=== PATIENT | male | born 1950 | race Caucasian/White ===

== ENCOUNTER 2018-10-07 06:51 | Inpatient (IN) | payer OTHER ==
[~2018-10-07] VITALS: Ht 198.1 cm; Wt 122.9 kg
--- NOTE | ~2018-10-07 | CON ---
[address] [address] CONSULTATION Name: BARBARA LANDAVERDE MING Room: [address] IN .R.#: [id number] Admission: 10/07/18 Attend Phys: Lindy Bonilla Discharge: Date of : 52 Report #: [id number] THIS REPORT FOR: //name// CC: Felix Thomas DATE OF SERVICE: 10/07/2018 PRIMARY CARE PHYSICIAN: Felix Diaz MD CHIEF COMPLAINT: Shortness of breath. HISTORY OF PRESENT ILLNESS: The patient is a 68-year-old man presently acutely hypoxic with some chest pressure in the Emergency Room. Chest x-ray showed some mild cardiomegaly and mild bilateral infiltrates. He was treated with oxygen, steroids and diuretics. This morning, he is more alert and less dyspneic. He denies chest pain or pressure. He denies orthopnea or PND, but has been short of breath. He weighs himself fairly regularly and has not really had any changes according to the patient. He is compliant with his medications, which include Plavix. He has a history of cardiovascular and peripheral vascular disease. His presenting ECG is unremarkable. His cardiac troponin level is mildly abnormal, at 0.86. PAST MEDICAL HISTORY: He had an anterior SC in 2002; 2018 showed no reversible defects on nuclear stress test, EF 52%. There is a history of prior peripheral vascular disease, atherectomy of the right leg. He has bilateral 50-69% stenoses on carotid Doppler. He has hyperlipidemia, hypertension, morbid obesity. PAST SURGICAL HISTORY: Atherectomy, PCI, mwfog-iaj-orji amputation in the left leg. HOME MEDICATIONS: Aspirin, Plavix, atorvastatin 80 mg daily, clonidine 0.1 mg b.i.d., Plavix 75 mg daily, Cymbalta, Jardiance, Triglide, iron, gabapentin, hydrocodone, insulin, lisinopril 10 mg daily, Toprol-XL 50 mg daily, ramipril 5 mg p.o. daily. 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 FAMILY HISTORY: [place] [address] CONSULTATION Name: BARBARA LANDAVERDE Room: [address]#: [id number] Admission: 10/07/18 Attend Phys: Lindy Bonilla Discharge: Date of : 52 Report #: [id number] REVIEW OF SYSTEMS: CENTRAL NERVOUS SYSTEM: No seizures. Positive weakness. GENERAL: No weight loss. RESPIRATORY: Positive shortness of breath. CARDIOVASCULAR: Positive chest pressure. No chest pain, no orthopnea, no PND, no edema. ENDOCRINE: Positive diabetes. GASTROINTESTINAL: No nausea, vomiting, or hematemesis. GENITOURINARY: No dysuria or hematuria. HEMATOLOGIC: No anemia or bleeding disorders. RENAL: Positive for renal insufficiency. PSYCHIATRIC: Positive depression. Positive anxiety. MUSCULOSKELETAL: No arthritis. SKIN: No skin disease. EARS, NOSE, THROAT AND MOUTH: Positive decreased hearing. Positive dentures. PHYSICAL EXAMINATION: VITAL SIGNS: Blood pressure is 141/71, pulse is 96, heart rate is 18, O2 flow is 2 liters nasal cannula with a sat of 92%. GENERAL: Obese, elderly male who is alert, in no apparent distress. HEENT: Eyes are intact. No facial asymmetry. EXTREMITIES: He has ailna-enu-uwxm amputation. CARDIOVASCULAR: Regular. There are no murmurs, gallops or thrills. LUNGS: Diminished breath sounds, faint basilar rales. ABDOMEN: Soft, nontender. EXTREMITIES: No peripheral edema. SKIN: Warm and dry. NEUROLOGIC: No focal deficits. Electrocardiogram as noted above. LABORATORY DATA: As noted above. Chest x-ray shows cardiomegaly and mild infiltrates diffusely. CT scan of the chest shows no evidence of pulmonary embolus. IMPRESSION: 1. Wdjie-sh-fecrppq diastolic congestive heart failure. 2. Coronary artery disease. 3. Chronic obstructive pulmonary disease exacerbation. 4. Coronary artery disease. 5. Peripheral vascular disease. 6. Hypertension. 7. Chronic kidney disease. PLAN: At this point in time, he will be admitted for COPD [place] [address] CONSULTATION Name: BARBARA LANDAVERDE MING Room: [address] IN .R.#: [id number] Admission: 10/07/18 Attend Phys: Lindy Bonilla Discharge: Date of : 52 Report #: [id number] will treat him with diuretics and resume his antiplatelet therapy for his chronic coronary artery disease. He has mildly abnormal troponin level, but this is probably more related to CHF rather than an acute coronary syndrome as he presents more with these findings. By: 1210 0226Cuba Roberto MD, FACC /nt
[~2018-10-07 06:51] MED LIST: ACETAMINOPHEN325 M1 PO; ADULT LOW DOSE81 MG PO; ALEVE220 MG; ALTACE10 M1 PO; ALTACE10 MG PO; AMBIEN 5 MG TABL5 M1 PO; APIDRA SQ; ASPIRIN81 M2 PO; ATORVASTATIN CA40 MG PO; BENADRYL25 MG PO; BRAIN MIGHT-DH1 EACH PO; CENTRUM SILVER1 EAC2 PO; CLONIDINE0.1 PO; CRESTOR5 MG PO; CYMBALTA30 MG PO; CYMBALTA60 MG PO; DARVOCET-N 1001 EACH PO; DESONIDE CR. 1515 G1 TP; DULCOLAX5 MG PO; ENOXAPARIN40 MG/0.1 INJECTION; FEVERALL650 MG PO; FIBER 6 TABLE1000 MG PO; FISHOIL PO; FLAGYL500 MG PO; FLUOCINONI0.05 %/31 TOP; FOLIC ACID1 MG PO; GABAPENTIN300 MG PO; GLUCOPHAGE1000 MG PO; HUMULINU500 SUBQ; ILEVRO1.7 ML OP; IRON325 PO; JARDIANCE25 MG PO; L LYSINE; LEVEMIR SQ; LEVEMIR100 UNIT/1 SUBQ; LIPITOR40 MG PO; LISINOPRIL10 MG PO; MAG-AL PLUS XS30 ML PO; MAGNESIUM OXID200 MG PO; MELATONIN5 M1 PO; METANX; METFORMIN HCL500 MG PO; MILK OF MA2400 MG/10 PO; MINOCYCLINE HC100 M2; NEURONTIN 300300 M1 PO; NITROGLYCERIN0.4 MG SL; NIZORAL120 ML TP; NORCO 10-325 T1 EAC1 PO; NORCO 5-325 TA1 EAC1 PO; NORVASC 2.5 MG2.5 M1 PO; ONDANSETRON HCL4 M2 PO; OSTEO BI-FLEX1 EAC1 PO; OXYCODONE HCL15 MG PO; PHENERGAN 25 MG25 M1 PO; PIOGLITAZONE15 MG PO; PLAVIX 75 MG TA75 M1 PO; PLAVIX 75 MG TA75 MG PO; POLYTRIM OTIC; POTASSIUM; PRED FORTE 1% EY5 M1 OP; ROCEPHIN 11 GM/1001 IV; SYMLIN0.6 MG/ML; SYMLIN0.6 MG/ML SQ; TACLONEX OINTME60 GM TP; TOPROL XL50 MG PO; TOUJEO SOL300 UNIT/1 SQ; TRICOR145 MG PO; TRIGLIDE160 M1 PO; TRUJEO SUBQ; TYLENOL325 MG PO; VANCO 1.251.25 GM/25 IV; VICODIN 5-5001 EACH PO; VICTOZA0.6 MG/0.1 SUBQ; VIT A-BETA25000 UNIT PO; VITAMIN B-12500 MCG PO; VITAMIN B6 PO; VITAMIN D32000 UNI1 PO; VITAMIN E400 UNIT PO; XANAX 0.25 MG0.25 MG PO; ZOCOR 20 MG TAB20 M1 PO
[2018-10-07 07:01] VITALS: BP 179/98
[2018-10-07 07:19] LABS: ABSOLUTE BASOPHILS 0.1 thou/uL (0.0-0.2); ABSOLUTE EOSINOPHILS 0.3 thou/uL (0.0-0.7); ABSOLUTE LYMPHOCYTES 1.5 thou/uL (0.8-5.3); ABSOLUTE MONOCYTES 0.4 thou/uL (0.0-1.2); ABSOLUTE NEUTROPHILS 7.5 thou/uL (1.6-8.1); BASOPHILS 0.9 %; EOSINOPHILS 3.1 %; HEMATOCRIT 39.8 % (42.0-52.0); HEMOGLOBIN 12.8 gm/dL (14.0-18.0); LYMPHOCYTES 15.1 %; MCH 27.2 pg (26.0-34.0); MCHC 32.2 g/dL (28.0-37.0); MCV 84.5 fL (80.0-100.0); MONOCYTES 4.5 %; MPV 7.7 fl. (7.2-11.1); NUCLEATED RBCS 0 /100WBC; PLATELET COUNT* 479 thou/uL (150-400); POLYS 76.4 %; RBC 4.72 mil/uL (4.50-6.00); RDW-CV 16.8 % (10.5-14.5); WBC 9.8 thou/uL (4.0-11.0)
[2018-10-07 07:34] LABS: INR 1.1; PROTIME 11.5 Seconds (9.20-11.50)
[2018-10-07 07:44] LABS: CALCIUM 10.3 mg/dL (8.5-10.1); POTASSIUM 3.8 mmol/L (3.5-5.1)
[2018-10-07 07:53] LABS: ALBUMIN 3.9 g/dL (3.4-5.0); TOTAL BILIRUBIN 0.5 mg/dL (<0.1-1.0); TOTAL PROTEIN 8.8 g/dL (6.4-8.2); TROPONIN-I LEVEL 0.08 ng/mL (<0.06)
[2018-10-07 08:05] LABS: BE 0.9 mmol/L (-2 to +3); PO2 69.1 mmHg (75.0-100.0); pH 7.398 (7.340-7.450)
[2018-10-07 17:30] VITALS: BP 158/74
[2018-10-07 18:30] VITALS: BP 126/63
--- NOTE | 2018-10-07 18:30 | NUR ---
REC'D REPORT FROM CRUISE CONSULTANT APPROX 1725, PATIENT ARRIVED TO UNIT APPROX 1803 VIA HOSPITAL BED AND ER STAFF. A&OX4, ABLE TO COMMUNICATE NEEDS TO STAFF. 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 O2 SAT 96% RA. ADMISSION EDUCATION AND ADMISSION HISTORY COMPLETE. ORIENTED PATIENT TO ROOM, FALL PROTOCOL AND CALL LIGHT.
[2018-10-07 20:30] VITALS: BP 122/59
[2018-10-08] VITALS: BP 137/63
--- NOTE | 2018-10-08 01:54 | NUR ---
RECEIVED REPORT AND ASSUMED CARE OF PATIENT AT APPROX 1930. ADMISSION ASSESSMENT COMPLETED CHARTED, VSS ON ROOM AIR. PATIENT DENIES PAIN AND DISCOMFORT. PATIENT EDUCATED ON PLAN OF CARE AND VERBALIZES UNDERSTANDING. GOAL IS TO PAIN MANAGEMENT, MAINTAIN O2 SAT >92%, AND REST COMFORTABLY THIS SHIFT. DARK AND QUIET ENVIRONMENT PROVIDED FOR REST AND RELAXATION. CALL LIGHT WITHIN REACH.
[2018-10-08 04:00] VITALS: BP 126/56
[2018-10-08 07:10] VITALS: BP 128/68
--- NOTE | 2018-10-08 07:30 | NUR ---
PATIENT PROGRESSING TOWARDS GOALS: PATIENT CONTINUES TO DENY PAIN AND DISCOMFORT. O2 SAT >92% ON ROOM AIR. PATIENT RESTED WELL THROUGHOUT SHIFT. PT HOPING TO BE DISCHARGED HOME TODAY. STATES HE "FEELS MUCH BETTER." REPORT GIVEN TO ONCOMING RN. CALL LIGHT WITHIN REACH
[2018-10-08 11:30] VITALS: BP 115/54
--- NOTE | 2018-10-08 13:00 | NUR ---
INITAL ASSESSMENT COMPLETED CHARTED. PT TRACING SR ON MONITOR. NEW ORDERS RECIEVED FOR HEPARIN GTT AND WILL GO FOR HEART CATH TOMORROW. PT EDUCATED ON UPCOMING PROCEDURE, ACKNOWLEDGES UNDERSTANDING. PT LISBET BOURNE CP, N/V/D. HOURLY ROUNDING AND FALL PRECAUTIONS IN PLACE FOR PT SAFETY. CLWR.
[2018-10-08 16:00] VITALS: BP 131/54
[2018-10-08 19:30] VITALS: BP 139/60
[2018-10-09] VITALS (7 sets, daily range): BP systolic 115–159; BP diastolic 57–84
--- NOTE | 2018-10-09 01:13 | NUR ---
RECEIVED REPORT AND ASSUMED CARE AT 1900. VSS. CARDIAC MONITORING IN PLACE. PT DENIES COMPLAINTS OF PAIN. ASSESSMENT COMPLETED CHARTED. DISCUSSED PLAN OF CARE WITH PT. NPO AFTER MIDNIGHT, CATH TOMORROW. VERBALIZD UNDERSTANDING. PT UP WITH ASSIST, ON RA. BED LOCKED IN LOWEST POSITION, CALL LIGHT WITHIN REACH
[2018-10-09 04:51] LABS: CALCIUM 9.8 mg/dL (8.5-10.1); POTASSIUM 4.6 mmol/L (3.5-5.1)
--- NOTE | 2018-10-09 09:21 | NUR ---
Nutrition: consult received for "wound". Only wounds listed were "abrasion, scratch, scab." No pressure wound. Defer full assessemnet.
--- NOTE | 2018-10-09 13:06 | NUR ---
Pt is A&O. Resides at home with his . Pt states that his has metastic breast CA, he assists her as needed. Pt's dtr lives next door and is also available assist Pt/. Pt wears a left leg prosthetic. Has a walker that he can use as needed and a shower bench. Hx of HH post amputation. Hx of acute rehab and outpt therapy. Goal is home at ut. No needs anticipated.
--- NOTE | 2018-10-09 16:50 | EKG ---
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 Specialist: ER : 1950 Requested By: Hayley Suazo Order Number: [id number] Mirlela MD: Emiliano Young Measurements Intervals [place] Rate: 108 P: 0 CA: 45 QRS: 13 QRSD: 105 T: 57 QT: 320 QTc: 429 Interpretive Statements Sinus tachycardia Probable inferior infarct, acute Artifact in lead(s) V1 and baseline wander in lead(s) V5 Compared to ECG 11/30/2016 13:16:03 No significant changes Electronically Signed On 10-09-2018 16:49:58 CDT by Emiliano Young [email or web address] <ELECTRONICALLY SIGNED> By: Emiliano Young MD, [facility] 10/09/18 [phone] Emiliano Young MD, [facility] /EPI
--- NOTE | 2018-10-09 16:50 | EKG ---
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 : 1950 Requested By: Hayley Suazo Order Number: [id number] MD: Emiliano Young Measurements Intervals [place] Rate: 107 P: 69 CO: 210 QRS: 4 QRSD: 107 T: 52 QT: 333 QTc: 445 Interpretive Statements Sinus tachycardia Borderline prolonged CO interval Consider left atrial enlargement Inferior infarct, old Baseline wander in lead(s) V5,V6 Compared to ECG 11/30/2016 13:16:03 Myocardial infarct finding still present Electronically Signed On 10-09-2018 16:50:26 CDT by Emiliano Young [email or web address] <ELECTRONICALLY SIGNED> By: Emiliano Young MD, [facility] 10/09/18 1650 [phone] Emiliano Young MD, [facility] /EPI
--- NOTE | 2018-10-09 16:59 | EKG ---
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: 1884 : 1950 Requested By: Cuba Roberto Order Number: [id number] Reading MD: Emiliano Young Measurements Intervals [place] Rate: 99 P: 86 [place]: 195 QRS: -23 QRSD: 117 T: 92 QT: 384 QTc: 493 Interpretive Statements Sinus tachycardia Ventricular premature complex Probable left atrial enlargement LVH with IVCD and secondary repol abnrm Probable inferior infarct, age uncertain Compared to ECG 11/30/2016 13:16:03 Ventricular premature complex(es) now present Intraventricular conduction delay now present Left ventricular hypertrophy now present Early repolarization now present Myocardial infarct finding still present Electronically Signed On 10-09-2018 16:58:54 CDT by Emiliano Young [email or web address] <ELECTRONICALLY SIGNED> By: Emiliano Young MD, [facility] 10/09/18 1658 1043 1043 Emiliano Young MD, [facility] /EPI
[2018-10-10 03:25] LABS: CALCIUM 9.7 mg/dL (8.5-10.1); CREATININE 1.8 mg/dL (0.6-1.3); POTASSIUM 4.7 mmol/L (3.5-5.1)
[2018-10-10 04:00] VITALS: BP 140/66
--- NOTE | 2018-10-10 05:44 | NUR ---
PATIENT PROGRESSING TOWARDS GOALS: PATIENT DENIES PAIN AND DISCOMFORT. VSS ON ROOM AIR. PATIENT ANTICIPATING CARDIAC CATH TODAY. PT UNDERSTANDS PLAN OF CARE. BLOOD SUGAR 440. DISCUSSED WITH DR. GE. ADVANCED SLIDING SCALE LISPRO TO MODERATE DOSE. PATIENT REQUESTED BOX LUNCH. OFFERED SUGAR FREE ALTERNATIVES DUE TO ELEVATED BLOOD SUGAR. HEPARIN GTT INFUSING PER ORDERS. CALL LIGHT WITHIN REACH
[2018-10-10 07:15] VITALS: BP 129/60
[2018-10-10 11:37] VITALS: BP 133/56
--- NOTE | 2018-10-10 14:19 | 2DMMODE ---
[place] [address] 2 D/M-MODE ECHOCARDIOGRAM Name: BARBARA LANDAVERDE [facility]#: [id number] Admission: 10/07/18 Attend Phys: Charli Thomas Discharge: Date of : 52 Date of Service: 10/10/18 1419 Report #: [id number] THIS REPORT FOR: //name// APPROVED REPORT Study performed: 10/10/2018 10:29:54 EXAM: Comprehensive 2D, Doppler, and color-flow Echocardiogram Patient Location: In-Patient Room #: 210 Status: routine BSA: 2.53 HR: 90 bpm BP: 129/60 mmHg Rhythm: NSR Other Information Study Quality: Good Indications Acute MO COPD 2D Dimensions IVSd: 14.46 (7-11mm) LVOT Diam: 24.31 (18-24mm) LVDd: 55.52 mm PWd: 14.09 (7-11mm) Ascending Ao: 38.32 (22-36mm) LVDs: 26.15 (25-40mm) Aortic Root: 34.97 mm Volumes Left Atrial Volume (Systole) LA ESV Index: 30.50 mL/m2 Aortic Valve AoV Peak Stuart.: 1.27 m/s AO Peak Gr.: 6.40 mmHg LVOT Max P.28 mmHg AO Mean Gr.: 4.08 mmHg LVOT Mean P.86 mmHg LVOT Max V: 1.15 m/s AO V2 VTI: 25.56 cm LVOT Mean V: 0.79 m/s ENRICO (VTI): 4.56 cm2 LVOT V1 VTI: 25.10 cm Mitral Valve E/A Ratio: 1.14 MV Decel. Time: 155.53 [place] [address] 2 D/M-MODE ECHOCARDIOGRAM Name: BARBARA LANDAVERDE Room: [address] IN .R.#: [id number] Admission: 10/07/18 Attend Phys: Charli Thomas Discharge: Date of : 52 Date of Service: 10/10/18 1419 Report #: [id number] MV E Max Stuart.: 1.08 m/s MV PHT: 45.10 ms MVA (PHT): 4.88 cm2 TDI E/Lateral E': 8.31 E/Medial E': 10.80 Medial E' Stuart.: 0.10 m/s Lateral E' Stuart.: 0.13 m/s Pulmonary Valve PV Peak Stuart.: 1.15 m/s PV Peak Gr.: 5.28 mmHg Left Ventricle The left ventricle is normal size. Regional wall motion abnormalities are noted with distal septal and anteroapical hypo-akinesis. There is normal left ventricular wall thickness. Left ventricular systolic function is mildly decreased. LVEF is 50%. The left ventricular diastolic function is normal. Right Ventricle The right ventricle is normal size. The right ventricular systolic function is normal. Atria The left atrium size is normal. The right atrium size is normal. Aortic Valve Moderate aortic valve sclerosis. No aortic regurgitation is present. There is no aortic valvular stenosis. Mitral Valve The mitral valve is mildly thickened. Trace mitral regurgitation. No evidence of mitral valve stenosis. Tricuspid Valve The tricuspid valve is normal in structure. Trace tricuspid regurgitation. Unable to assess PA pressure. Pulmonic Valve The pulmonary valve is normal in structure. There is no pulmonic valvular regurgitation. Great Vessels The aortic root is normal in size. IVC is normal in size and collapses >50% [place] [address] 2 D/M-MODE ECHOCARDIOGRAM Name: BARBARA LANDAVERDE Room: [address] IN [facility]#: [id number] Admission: 10/07/18 Attend Phys: Charli Thomas Discharge: Date of : 52 Date of Service: 10/10/18 1419 Report #: [id number] Pericardium There is no pericardial effusion. <Conclusion> The left ventricle is normal size. There is normal left ventricular wall thickness. Left ventricular systolic function is mildly decreased. LVEF is 50%. The left ventricular diastolic function is normal. The right ventricle is normal size. The left atrium size is normal. Moderate aortic valve sclerosis. No aortic regurgitation is present. There is no aortic valvular stenosis. The mitral valve is mildly thickened. Trace mitral regurgitation. The tricuspid valve is normal in structure. IVC is normal in size and collapses >50% with inspiration. There is no pericardial effusion. Regional wall motion abnormalities are noted with distal septal and anteroapical hypo-akinesis. <ELECTRONICALLY SIGNED> By: Emiliano Young MD, FACC 10/10/18 1419 1419 1419 Emiliano Young MD, FACC /INF
[2018-10-10 15:40] VITALS: BP 136/57
--- NOTE | 2018-10-10 18:49 | NUR ---
ASSESSMENT COMPLETED CHARTED. VSS. TRACING SR WITH 1ST DEGREE AND PVC'S ON MONITOR. PT DENIES ANY NEW NEEDS OR CONCERNS AT THIS TIME. HOURLY ROUNDING AND FALL PRECAUTIONS IN PLACE FOR PT SAFETY. MEDS GIVEN PER EMAR. CLWR.
[2018-10-10 19:45] VITALS: BP 149/77
[2018-10-11] VITALS (18 sets, daily range): BP systolic 124–183; BP diastolic 58–87
[2018-10-11 01:34] LABS: CALCIUM 9.1 mg/dL (8.5-10.1); CREATININE 1.7 mg/dL (0.6-1.3)
--- NOTE | 2018-10-11 07:04 | NUR ---
RECEIVED REPORT AND ASSUMED CARE AT 1900. VSS. CARDIAC MONITORING IN PLACE. PT DENIES COMPLAINTS OF PAIN. ASSESSMENT COMPLETED CHARTED. PT UP WITH ASSIST, WITH WALKER WITH PROSTHETIC. ON RA. BED LOCKED IN LOWEST POSITION, CALL LIGHT WITHIN REACH. HOURLY ROUNDING COMPLETED AND ALL NEEDS MET.
--- NOTE | 2018-10-11 13:02 | NUR ---
ASSUMED CARE OF PATIENT THIS AM AT 0730. PATIENT IS ALERT AND ORIENTED X 4. HE DENIES CHEST PAIN. HEPARIN GTT WAS INFUSING FROM RAIMANN MACHINE OPERATOR ALONG WITH MAINTAINCE IVF. DR ANTONY IN EARLY TO ROUND AND ORDERS FOR CARDIAC CATH PLACED. PATIENT TAKEN TO POPCORN ATTENDANT CORNELIO BED. PATIENT RETURNED TO THE ROOM AT 1015. POST CATH VS TAKEN. TELE SHOWS CONTINUED SR. PATIENT CONTINUES TO DENY CHEST PAIN. DIET ORDERED. PATIENT ASSISTED WITH ADLS. WILL CONTINUE TO MONITOR. CATH SITE INTACT. NO BLEEDING NOTED.
--- NOTE | 2018-10-11 16:19 | CARD ---
[address] [address] CARDIAC CATH REPORT Name: BARBARA LANDAVERDE MING Room: [address] IN [facility].#: [id number] Admission: 10/07/18 Attend Phys: Lindy Bonilla Discharge: Date of : 52 Report #: [id number] THIS REPORT FOR: //name// APPROVED REPORT Study performed: 10/11/2018 08:35:18 Patient Details Patient Status: In-Patient Room #: The patient is a 68 year-old male Event Personnel Felix Ling Photographic Plate Maker, Tayla Rodriguez RN RN, Stephan Etienne (Nedra) Eloise Brewer Brittany RN Monitor Procedures Performed Art Access - R radial artery Indication Non-STEMI Risk Factors Peripheral Vascular Disease, Diabetes Previous Procedures/Diagnoses Previous PCI Admission/Lab Medications/Medications given during procedure Glycoprotein IllbIlla Inhibitors, Heparin Unfract. Procedure Narrative The patient was brought electively to the Cardiac Catheterization Laboratory and was prepped and draped in a sterile manner. The right wrist was infiltrated with 1% Lidocaine subcutaneous anesthesia. A Slender Glidesheath sheath was inserted into the right radial artery. Coronary angiography was performed using coronary diagnostic catheters. The right coronary system was accessed and visualized with a JR4 6fr catheter. The left coronary system was accessed and visualized with a JL4 6fr catheter. The left ventricle was accessed and visualized with a JR4 6fr catheter. Left ventricular/Aortic Valve gradient assessed via catheter pullback. Closure device was deployed with a 6 Fr vascband. The patient tolerated the procedure well and there were no complications associated with the procedure. [place] [address] CARDIAC CATH REPORT Name: AKHILBARBARA MING Room: [address] IN [facility]#: [id number] Admission: 10/07/18 Attend Phys: Lindy Bonilla Discharge: Date of : 52 Report #: [id number] Intraoperative Conscious Sedation Sedation start time: 915 Case end Time: 950 Versed 2 mg Fluoro Time: 5.5 minutes Dose: DAP 01983 cGycm2 1475 mGy Contrast Type and Amount: Visipaque 200 ml Coronary Angiography The patient's coronary anatomy is right dominant. Diagnostic Cath Left Main 30% distal stenosis LAD proximal stent with 30% restenosis. 90% mid stenosis and 80% apical stenosis Diagonal 1 small vessel with 70% mid stenosis Circumflex 0% stenosis Right Coronary 30% mid stenosis R PDA 50% ostial and 90% distal stenosis Ramus Noted to bifurcate. One distal limb had a 80% mid stenosis and the other branch appeared to be chronically occluded. Left Ventriculography Left Ventriculography was not performed. Hemodynamics The aortic pressure is 123/59 mmHg with a mean of 82 mmHg. The left ventricular pressure is 115/10 mmHg with a mean of mmHg. The left ventricular end diastolic pressure is 12 mmHg. There was no gradient across the aortic valve upon pullback. Pullback from the left ventricle to the aorta revealed no gradient across the aortic valve. PCI Technique Lesion Anticoagulation was achieved with Heparin. bolus of iv aggrastat given Percutaneous coronary intervention was performed on the mid left anterior descending artery segment. The lesion stenosis prior to intervention was 90% with DARLYN 3 flow. A 6F XB LAD 3.5 Guide Catheter was used to engage the lm ostium. A IG: BMW 190cm Interventional Guidewire was used to cross the lesion. BALLOON DILATION A Balloon catheter Trek RX 2.5 X 8 was inserted and inflated up to 8.00atm for 18seconds. Repeat [place] [address] CARDIAC CATH REPORT Name: DAHLIAQASIMBARBARA Room: [address]#: [id number] Admission: 10/07/18 Attend Phys: Lindy Bonilla Discharge: Date of : 52 Report #: [id number] post-dilatation results: 70% stenosis. STENT DEPLOYMENT A drug-eluting stent Xience Anna 2.5X12mm was inserted and inflated up to 8.00atm for 16seconds. Repeat angiography revealed the following post-stent deployment results: 0% stenosis. Additional Inflation: 9.00atm for 11seconds. Additional Inflation: 16.00atm for 3seconds. Final angiography reveals 0 % stenosis with DARLYN 3 flow. Conclusion 1. No restenosis of stent in the proximal lad, but 90% stenosis in the mid lad 2. 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 Recommendations Cardiac Rehabilitation Referral Aggressive Medical Therapy Medications Administered Clopidogrel <ELECTRONICALLY SIGNED> By: Felix Ling MD, [facility] 10/11/18 1619 1619 1619Damargo iLng MD, [facility] /INF
[2018-10-12 04:00] VITALS: BP 147/68
[2018-10-12 04:48] LABS: HEMATOCRIT 32.7 % (42.0-52.0); HEMOGLOBIN 10.4 gm/dL (14.0-18.0); MCH 26.8 pg (26.0-34.0); MCHC 31.8 g/dL (28.0-37.0); MCV 84.1 fL (80.0-100.0); MPV 8.2 fl. (7.2-11.1); RBC 3.88 mil/uL (4.50-6.00); RDW-CV 16.4 % (10.5-14.5); WBC 9.3 thou/uL (4.0-11.0)
--- NOTE | 2018-10-12 05:01 | NUR ---
Patient progressing towards goals: patient denies pain and discomfort throughout shift. Right radial cath site dressing c/d/i without hematoma. Patient reports good sensation in hand without tingling/numbness. Patient voiding per urinal with excellent output. Possible discharge today. Call light within reach
[2018-10-12 05:31] LABS: CALCIUM 8.8 mg/dL (8.5-10.1); CREATININE 1.5 mg/dL (0.6-1.3); POTASSIUM 3.9 mmol/L (3.5-5.1)
[2018-10-12 05:38] LABS: TROPONIN-I LEVEL 4.36 ng/mL (<0.06)
[2018-10-12 07:58] VITALS: BP 121/66
[2018-10-12] MEDS ORDERED: KEFLEX500 M1 PO (10:22)
[2018-10-12] MEDS ORDERED: PREDNISONE 10 M10 MG PO (10:22)
--- NOTE | 2018-10-12 10:23 | NUR ---
ASSUMED CARE OF PT AROUND 0730 THIS AM. REFER TO ASSESSMENT. PT ANTICIPATES DC HOME TODAY. CARDIOLOGY OK WITH DC. AWAITING ORDER FROM HIMS AT THIS TIME. NO C/O PAIN. NO OTHER CONCERNS AT THIS TIME. CLWR. WCTM.
[2018-10-12] MEDS ORDERED: ALTACE10 MG PO (10:58)
[2018-10-12] MEDS ORDERED: NITROGLYCERIN0.4 MG SUBLING (10:59)
--- NOTE | 2018-10-12 11:36 | EKG ---
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 : 1950 Requested By: Felix Ling Order Number: [id number] Reading MD: Cuba Roberto Measurements Intervals [place] Rate: 66 P: 53 [place]: 198 QRS: -15 QRSD: 120 T: 96 QT: 409 QTc: 429 Interpretive Statements Sinus rhythm Nonspecific intraventricular conduction delay Inferior infarct, old Lateral leads are also involved Compared to ECG 10/08/2018 10:43:10 Sinus tachycardia no longer present Ventricular premature complex(es) no longer present Left ventricular hypertrophy no longer present Early repolarization no longer present Myocardial infarct finding still present Electronically Signed On 10-12-2018 11:36:28 CDT by Cuba Roberto [email or web address] <ELECTRONICALLY SIGNED> By: Cuba Roberto MD, [facility] 10/12/18 1136 5 5 Cuba Roberto MD, [facility] /EPI
--- NOTE | 2018-10-12 12:00 | NUR ---
DC INSTRUCTIONS GIVEN TO PT AT THIS TIME. VERBALIZES UNDERSTANDING. F/U CARDIOLOGY APPOINTMENT SCHEDULED FOR 10/17/18 AT 1330. IV DC'D INTACT. NO OTHER CONCERNS AT THIS TIME. CLWR. WCTM.
== END 2018-10-12 12:11 | disposition home or self-care (01) | DRG 246 ==
LOC: M.ERS 06:51 → M.2W 08:55 → M.TBA-ER 08:55 → M.2W 17:57
PROVIDERS: Family Medicine; Internal Medicine; Internal Medicine Cardiovascular Disease; Personal Emergency Response Attendant; Registered Nurse; ADMIT Internal Medicine
PROC: B211YZZ Fluoroscopy of Multiple Coronary Arteries using Other Contrast (ICD-10-PCS; principal; 2018-10-11)
PROC: 4A023N7 Measurement of Cardiac Sampling and Pressure, Left Heart, Percutaneous Approach (ICD-10-PCS; principal; 2018-10-11)
PROC: 027034Z Dilation of Coronary Artery, One Artery with Drug-eluting Intraluminal Device, Percutaneous Approach (ICD-10-PCS; principal; 2018-10-11)
DX: I21.4 Non-ST elevation (NSTEMI) myocardial infarction (principal); I50.33 Acute on chronic diastolic (congestive) heart failure; J96.00 Acute respiratory failure, unspecified whether with hypoxia or hypercapnia; I13.0 Hypertensive heart and chronic kidney disease with heart failure and stage 1 through stage 4 chronic kidney disease, or unspecified chronic kidney disease; N17.9 Acute kidney failure, unspecified; J44.1 Chronic obstructive pulmonary disease with (acute) exacerbation; N18.9 Chronic kidney disease, unspecified; E11.22 Type 2 diabetes mellitus with diabetic chronic kidney disease; E78.5 Hyperlipidemia, unspecified; F32.9 Major depressive disorder, single episode, unspecified; M19.90 Unspecified osteoarthritis, unspecified site; E11.40 Type 2 diabetes mellitus with diabetic neuropathy, unspecified; L40.9 Psoriasis, unspecified; E11.51 Type 2 diabetes mellitus with diabetic peripheral angiopathy without gangrene; E66.01 Morbid (severe) obesity due to excess calories; D64.9 Anemia, unspecified; I25.10 Atherosclerotic heart disease of native coronary artery without angina pectoris; I25.2 Old myocardial infarction; Z95.5 Presence of coronary angioplasty implant and graft; Z87.891 Personal history of nicotine dependence; Z86.73 Personal history of transient ischemic attack (TIA), and cerebral infarction without residual deficits; Z82.49 Family history of ischemic heart disease and other diseases of the circulatory system; Z98.42 Cataract extraction status, left eye; Z98.41 Cataract extraction status, right eye; Z79.899 Other long term (current) drug therapy; Z79.82 Long term (current) use of aspirin; Z88.0 Allergy status to penicillin; Z68.31 Body mass index [BMI] 31.0-31.9, adult; Z89.512 Acquired absence of left leg below knee; Z83.3 Family history of diabetes mellitus

== ENCOUNTER 2019-01-04 12:52 | Emergency (ER) | payer OTHER ==
[~2019-01-04] VITALS: Ht 198.1 cm; Wt 121.1 kg
[~2019-01-04 12:52] MED LIST changes: +KEFLEX500 M1 PO; +NITROGLYCERIN0.4 MG SUBLING; +PREDNISONE 10 M10 MG PO
[2019-01-04] MEDS ORDERED: METFORMIN HCL500 MG PO (13:08)
[2019-01-04 13:20] LABS: ABSOLUTE BASOPHILS 0.1 thou/uL (0.0-0.2); ABSOLUTE EOSINOPHILS 0.3 thou/uL (0.0-0.7); ABSOLUTE LYMPHOCYTES 0.8 thou/uL (0.8-5.3); ABSOLUTE MONOCYTES 0.5 thou/uL (0.0-1.2); ABSOLUTE NEUTROPHILS 7.6 thou/uL (1.6-8.1); BASOPHILS 0.7 %; EOSINOPHILS 2.9 %; HEMOGLOBIN 11.3 gm/dL (14.0-18.0); LYMPHOCYTES 8.8 %; MCH 28.4 pg (26.0-34.0); MCHC 32.2 g/dL (28.0-37.0); MCV 88.1 fL (80.0-100.0); MONOCYTES 5.8 %; MPV 7.4 fl. (7.2-11.1); NUCLEATED RBCS 0 /100WBC; PLATELET COUNT* 274 thou/uL (150-400); POLYS 81.8 %; RBC 3.97 mil/uL (4.50-6.00); RDW-CV 17.1 % (10.5-14.5); WBC 9.3 thou/uL (4.0-11.0)
[2019-01-04 13:30] LABS: ANION GAP 8 mmol/L (7-16); BUN 25 mg/dL (7-18); CALCIUM 10.3 mg/dL (8.5-10.1); CHLORIDE 105 mmol/L (98-107); CO2 28 mmol/L (21-32); CREATININE 1.6 mg/dL (0.6-1.3); GLUCOSE 142 mg/dL (70-99); POTASSIUM 5.1 mmol/L (3.5-5.1); SODIUM 141 mmol/L (136-145)
[2019-01-04 13:39] LABS: ALBUMIN 3.7 g/dL (3.4-5.0); ALKALINE PHOSPHATASE 102 U/L (46-116); SGOT 21 U/L (15-37); SGPT 30 U/L (30-65); TOTAL BILIRUBIN 0.4 mg/dL (<0.1-1.0); TOTAL PROTEIN 7.4 g/dL (6.4-8.2); TROPONIN-I LEVEL <0.06 ng/mL (<0.06)
[2019-01-04] MEDS ORDERED: LIDODERM1 EACH TRANSDERM (13:42)
[2019-01-04] MEDS ORDERED: FLEXERIL PO (13:42)
[2019-01-04] MEDS ORDERED: NORCO 5-325 TA1 EAC1 PO (13:42)
[2019-01-04 14:03] VITALS: BP 137/92
--- NOTE | 2019-01-05 11:14 | EKG ---
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: : 1950 Requested By: Osman Schmidt Order Number: [id number] MD: Felix Ling Measurements Intervals [place] Rate: 81 P: 27 [place]: 204 QRS: -26 QRSD: 119 T: 98 QT: 376 QTc: 437 Interpretive Statements Sinus rhythm Incomplete right bundle branch block LVH with IVCD and secondary repol abnrm Inferior infarct, old Compared to ECG 10/12/2018 08:06:20 Left ventricular hypertrophy now present Myocardial infarct finding still present Electronically Signed On 01-05-2019 11:14:20 CDT by Felix Ling [email or web address] <ELECTRONICALLY SIGNED> By: Felix Ling MD, FAC 01/05/19 1114 1318 1318 Felix Ling MD, [facility] /EPI
== END 2019-01-04 14:04 | disposition home or self-care (01) ==
LOC: M.ERS 12:52
PROVIDERS: Emergency Medicine Emergency Medical Services
DX: M54.5 Low back pain (principal); E11.40 Type 2 diabetes mellitus with diabetic neuropathy, unspecified; I25.2 Old myocardial infarction; F32.9 Major depressive disorder, single episode, unspecified; I10 Essential (primary) hypertension; M19.90 Unspecified osteoarthritis, unspecified site; E78.5 Hyperlipidemia, unspecified; Z98.41 Cataract extraction status, right eye; Z98.42 Cataract extraction status, left eye; Z95.2 Presence of prosthetic heart valve; Z86.73 Personal history of transient ischemic attack (TIA), and cerebral infarction without residual deficits; Z89.512 Acquired absence of left leg below knee; Z88.0 Allergy status to penicillin; Z91.048 Other nonmedicinal substance allergy status

== ENCOUNTER → 2019-01-11 | Outpatient (CLI) | payer OTHER ==
[~2019-01-11] MED LIST changes: +FLEXERIL PO; +LIDODERM1 EACH TRANSDERM
== END ==
LOC: M.MRI 13:07
DX: M51.86 Other intervertebral disc disorders, lumbar region (principal); M48.061 Spinal stenosis, lumbar region without neurogenic claudication; M51.87 Other intervertebral disc disorders, lumbosacral region; M47.816 Spondylosis without myelopathy or radiculopathy, lumbar region; M48.07 Spinal stenosis, lumbosacral region

== ENCOUNTER 2019-05-14 08:09 | Inpatient (IN) | payer OTHER ==
[~2019-05-14] VITALS: Ht 198.1 cm; Wt 127.9 kg
--- NOTE | ~2019-05-14 | CON ---
[address] [address] CONSULTATION Name: AMANDAKAILEEBARBARAMargy LAI Room: [address] IN M.R.#: [id number] Admission: 05/14/19 Attend Phys: Lilia Morgan Discharge: Date of : 52 Report #: [id number] THIS REPORT FOR: //name// CC: Felix Suárez DATE OF SERVICE: 05/16/2019 This is a consultation obtained by Dr. Suárez for acute kidney injury. HISTORY OF PRESENT ILLNESS: The patient is a very pleasant 69-year-old gentleman who follows by my partner, Dr. Nelson, for chronic kidney disease. He has significant vascular disease with coronary artery disease and history of PCI and coronary stents in the past. He also has a history of COPD, has vascular disease, and left below-knee amputation. He was admitted with the chief complaint of abdominal pain and nausea 2 days ago. He is on ramipril chronically. He was diagnosed with a left-sided pyelonephritis and complicated UTI. He had nausea, but no significant diarrhea or vomiting reported. His intake is below what he thinks it should be. He does appear slightly volume depleted. His mucous membranes are dry. His skin is dry. There have been some febrile moments, but no chills have been reported. He reports his pain is much better now. He is getting IV fluids and antibiotics. ALLERGIES: TO PENICILLIN. PAST MEDICAL HISTORY: Diabetes mellitus with vasculopathy, peripheral vascular disease, history of coronary artery disease, acute myocardial infarction with stents in the past, peripheral neuropathy, chronic kidney disease stage 3, arthritis, psoriasis, hypertension, dyslipidemia, and depression. PERSONAL, SOCIAL, AND FAMILY HISTORY: Reviewed. He is a former smoker. No illicit drug abuse. Occasional alcohol use. FAMILY HISTORY: Negative for ESRD. REVIEW OF SYSTEMS: Feels overall much better. Pain is improved. No nausea today. No vomiting, no diarrhea reported. The pain is improved. Appetite is slowly improving. PHYSICAL EXAMINATION: VITAL SIGNS: His blood pressure this morning is 112/63. Pulse rate is 90. He is afebrile. LUNGS: Diminished, but clear bilaterally. HEENT: Mucous membranes are very dry. EXTREMITIES: Show no significant edema. He has a left below-knee amputation. ABDOMEN: Distended, but not tender anymore. No peritoneal [place] [address] CONSULTATION Name: BARBARA LANDAVERDE Room: [address] IN [facility]#: [id number] Admission: 05/14/19 Attend Phys: Lilia Morgan Discharge: Date of : 52 Report #: [id number] are noted. LABORATORY DATA: White count is 5.9, down from 12.3 on admission. Sodium is 135, potassium is 3.4, chloride is 99, bicarbonate is 21, BUN is 50, and creatinine is 5.1. His creatinine on admission was 2.3. His baseline creatinine appears to be 1.5 to 1.7. Glucose 196. Calcium 7.9. AST, ALT are relatively normal. Alkaline phosphatase is 80 and albumin of 2.6. Urinalysis shows trace ketones, 2+ protein, blood with rbc's and wbc's, and many bacteria. Urine cultures are showing gram-negative rods. IMAGING STUDIES: CT of the abdomen was done, which shows evidence of left-sided pyelonephritis with perinephric stranding. Right kidney on the ultrasound shows either a cyst or pelvicaliceal dilatation that is unclear. CT of the abdomen did not mention any significant abnormalities in the right kidney. ASSESSMENT: 1. Acute kidney injury. 2. Acute pyelonephritis on the left with gas is seen in the collecting system. 3. History of chronic kidney disease with diabetes, coronary artery disease and MICHEL inhibitor use. 4. Baseline creatinine 1.5 to 1.7. 5. The patient appears volume depleted. 6. History of diabetes. 7. History of coronary artery disease. 8. Gram-negative rods in the urine. PLAN: 1. Acute kidney injury secondary to sepsis and acute tubular necrosis. 2. I agree with IV fluids, continue normal saline at 100 mL an hour. 3. Antibiotics to continue as per suggestions by Infectious Disease Service. 4. Closely monitor renal labs. 5. Encourage p.o. intake. 6. Avoid all nephrotoxic medications, MICHEL inhibitors, ARBs, NSAIDs, IV aminoglycosides, IV contrast, etc. Thank you for the consultation. We will continue to follow and provide necessary support. By: 1111 0000Quita Nascimento MD /josé miguel
[~2019-05-14 08:09] MED LIST changes: -TRIGLIDE160 M1 PO; +TRIGLIDE160 MG PO
[2019-05-14 08:20] VITALS: BP 207/90
[2019-05-14 09:04] LABS: HEMATOCRIT 36.3 % (42.0-52.0); MCH 28.4 pg (26.0-34.0); MPV 7.2 fl. (7.2-11.1); NUCLEATED RBCS 0 /100WBC; PLATELET COUNT* 187 thou/uL (150-400); RBC 4.22 mil/uL (4.50-6.00); RDW-CV 17.1 % (10.5-14.5); WBC 12.3 thou/uL (4.0-11.0)
[2019-05-14 09:10] LABS: CALCIUM 8.9 mg/dL (8.5-10.1); CREATININE 2.3 mg/dL (0.6-1.3); POTASSIUM 3.9 mmol/L (3.5-5.1)
[2019-05-14 09:14] LABS: ALBUMIN 3.6 g/dL (3.4-5.0); TOTAL BILIRUBIN 0.9 mg/dL (<0.1-1.0); TOTAL PROTEIN 7.6 g/dL (6.4-8.2)
[2019-05-14 09:21] LABS: INFLUENZA A ANTIGEN Negative (Negative); INFLUENZA B ANTIGEN Negative (Negative)
[2019-05-14 09:46] LABS: ABSOLUTE LYMPHOCYTES 0.7 thou/uL (0.8-5.3); ABSOLUTE MONOCYTES 0.4 thou/uL (0.0-1.2); ABSOLUTE NEUTROPHILS 11.2 thou/uL (1.6-8.1); METAMYELOCYTES 1 %; PLATELET ESTIMATE ADEQUATE
[2019-05-14 10:02] LABS: URINE BILIRUBIN NEGATIVE (Negative); URINE BLOOD 3+ (Negative); URINE CLARITY CLEAR; URINE COLOR YELLOW; URINE GLUCOSE-RANDOM 3+ (Negative); URINE KETONES TRACE (Negative); URINE LEUKOCYTES-REFLEX NEGATIVE (Negative); URINE NITRITE-REFLEX NEGATIVE (Negative); URINE PROTEIN 2+ (Negative); URINE UROBILINOGEN 0.2 E.U./dl (0.2-1.0)
--- NOTE | 2019-05-14 10:09 | EKG ---
[place] [address] ELECTROCARDIOGRAM REPORT Name: BARBARA LANDAVERDE Room: [facility]#: [id number] Admission: 05/14/19 Attend Phys: Discharge: Date of : 52 Report #: [id number] THIS REPORT FOR: //name// [facility] Test Date: 2019-05-14 Test Time: 08:57:47 Pat Name: BARBARA LANDAVERDE Department: Room: Gender: M [employer] Supervisor: [facility] : 1950 Requested By: Salty Gill Order Number: [id number] MD: Felix Ling Measurements Intervals [place] Rate: 100 P: 70 [place]: 198 QRS: -21 QRSD: 130 T: 27 QT: 367 QTc: 474 Interpretive Statements Sinus tachycardia Left ventricular hypertrophy Inferior infarct, old Baseline wander in lead(s) V5 Compared to ECG 01/04/2019 13:18:49 Sinus rhythm no longer present Myocardial infarct finding still present Electronically Signed On 05-14-2019 10:09:18 PHARMACY BENEFITS COORDINATOR by Felix Ling [email or web address] <ELECTRONICALLY SIGNED> By: Felix Ling MD, [facility] 05/14/19 1009 [id number] Felix Ling MD, [facility] /EPI
[2019-05-14 10:10] LABS: BACTERIA-REFLEX 1-9 Few /HPF (None Seen); CASTS None Seen /LPF (None Seen); CRYSTALS None Seen /LPF (None Seen); MUCUS 4-6 Moderate strn/LPF (None Seen); SQUAMOUS 0-3 Few /LPF (0-3); URINE WBC-REFLEX 6-15 Few /HPF (0-5)
[2019-05-14 15:53] VITALS: BP 169/86
[2019-05-14 16:35] VITALS: BP 169/86
[2019-05-14 17:28] VITALS: BP 123/75
--- NOTE | 2019-05-14 18:56 | NUR ---
PTAINET RESTING IN BED. UP WITH ASSSIT X1 AND PROSTHETIC LEFT LOWER LEG. VSS. BLOOD GLUCOSE MEASURED AT 500, INSULIN GIVEN PER MD ORDERS AND SLIDING SCALE ADJUSTED. LCTA BILATERALLY. GENERALIZED ABD PAIN WIT HDOCUMENTED UTI. HOURLY ROUNDING COMPETED FOR PATIENT SAFETY.
[2019-05-14 20:15] VITALS: BP 154/78
[2019-05-14 23:59] VITALS: BP 127/49
[2019-05-15 03:51] VITALS: BP 110/51
[2019-05-15 04:30] LABS: HEMATOCRIT 34.7 % (42.0-52.0); HEMOGLOBIN 11.8 gm/dL (14.0-18.0); MCH 28.7 pg (26.0-34.0); MCV 84.4 fL (80.0-100.0); RBC 4.11 mil/uL (4.50-6.00); RDW-CV 16.7 % (10.5-14.5); WBC 11.9 thou/uL (4.0-11.0)
[2019-05-15 04:42] LABS: ALBUMIN 2.9 g/dL (3.4-5.0); ALKALINE PHOSPHATASE 63 U/L (46-116); ANION GAP 12 mmol/L (7-16); BUN 31 mg/dL (7-18); CALCIUM 8.1 mg/dL (8.5-10.1); CHLORIDE 97 mmol/L (98-107); CO2 25 mmol/L (21-32); CREATININE 3.9 mg/dL (0.6-1.3); GLUCOSE 202 mg/dL (70-99); MAGNESIUM 1.4 mg/dL (1.8-2.4); POTASSIUM 3.5 mmol/L (3.5-5.1); SGOT 20 U/L (15-37); SGPT 22 U/L (30-65); SODIUM 134 mmol/L (136-145); TOTAL BILIRUBIN 0.7 mg/dL (<0.1-1.0)
[2019-05-15 04:55] LABS: CHOLESTEROL 129 mg/dL (<200); HDL CHOLESTEROL 65 mg/dL (>40); LDL CHOLESTEROL 48 mg/dL (<100); TRIGLYCERIDE 82 mg/dL (<150); VLDL 16 mg/dL (<40)
[2019-05-15 04:56] LABS: SERUM ASSESSMENT Clear
--- NOTE | 2019-05-15 05:07 | NUR ---
PT SLEPT ON AND OFF THIS SHIFT. ASSESSMENT DOCUMENTED. MEDS GIVEN PER E-MAR. IV PATENT, FLUIDS INFUSING. PT STATES PAIN IS STEADY BUT DID NOT WANT ANYTHING FOR IT. NEW IV STARTED. FALL PRECAUTIONS IN PLACE, WILL CONTINUE WITH PLAN OF CARE.
--- NOTE | 2019-05-15 07:12 | NUR ---
PT HAS HOME INSULIN PENS IN HOME MEDICATION BAG IN FRIDGE TO BE SENT TO PHARMACY.
[2019-05-15 07:52] VITALS: BP 111/63
[2019-05-15 11:30] VITALS: BP 132/68
--- NOTE | 2019-05-15 14:40 | NUR ---
Pt is A&O. Resides at home alone, Pt stated that his in December 2018. Pt resides in a duplex and his dtr, MANASA and grandkids live next door. Pt is independent. Pt states that his sisters come over on Tuesday and help him as needed. Pt has a left leg prothesis. Pt has a walker, wc and cane for mobility. Hx of HH. No hx of SNF. Hx of acute rehab. Goal is home at ne, no needs anticipated.
[2019-05-15 16:07] VITALS: BP 149/78
--- NOTE | 2019-05-15 18:07 | CON ---
[address] [address] CONSULTATION Name: BARBARA LANDAVERDE Room: [address] IN M.R.#: [id number] Admission: 05/14/19 Attend Phys: Lilia Morgan Discharge: Date of : 52 Report #: [id number] THIS REPORT FOR: //name// CC: Felix Suárez DATE OF SERVICE: 05/14/2019 CARDIOLOGY CONSULTATION HISTORY OF PRESENT ILLNESS: The patient is a 69-year-old single white male who I was asked to see in the Emergency Room today after complaining of abdominal pain. The patient had previous coronary artery stenting at [facility] years ago. In 10/2018, he had non-STEMI here at [place] and I performed repeat cardiac catheterization. There is no significant restenosis stent to the proximal LAD, but a 90% stenosis of mid LAD. I placed a new drug-eluting stent. He was noted to have chronic occlusion of a diagonal branch. He was placed on Plavix. Since that time, he has had no further chest pain, shortness of breath or palpitations. Previous echocardiogram showed an ejection fraction of 50%. He is not very active because of PAD. He has had previous sore on his left foot. He had atherectomy of the left femoral popliteal area. The sore would not heal. He eventually underwent left ihhdt-nxd-axsh amputation and wears a prosthesis. Recently, he had noticed a fever. Today, he had noticed lower abdominal pain and pain in his left testis. He felt nauseated, tried to vomit. Denied any blood in his stool. He had some abdominal discomfort. Finally, came to the Emergency Room and admitted for further evaluation and treatment. PAST MEDICAL HISTORY: Otherwise significant for chronic kidney disease, hypertension, diabetes, hyperlipidemia, previous TIA, although carotid Doppler study showed no significant stenosis. He has had previous knee surgery, cataract extraction. MEDICATIONS: Include aspirin, Lipitor, Plavix, Cymbalta, fenofibrate, Neurontin, insulin, Victoza, metformin, metoprolol, Actos, and ramipril. ALLERGIES: HE HAS INTOLERANCE TO PENICILLIN. FAMILY HISTORY: His father had heart disease. SOCIAL HISTORY: He is single, lives by himself here in [place]. He quit smoking in 2002. Rarely uses alcohol. REVIEW OF SYSTEMS: He is overweight, being 6 feet 5, weighing 264 pounds. No history of asthma, peptic ulcer disease, chronic kidney disease[place] [address] CONSULTATION Name: BARBARA LANDAVERDE Room: [address]#: [id number] Admission: 05/14/19 Attend Phys: Lilia Morgan Discharge: Date of : 52 Report #: [id number] psychiatric illness. No chronic skin condition other than psoriasis. PHYSICAL EXAMINATION: GENERAL: Revealed a large middle-aged male, appeared in no acute distress. VITAL SIGNS: Blood pressure was 170/80, pulse is 80. He is afebrile. HEENT: He is anicteric. Conjunctivae pink. Mucous membranes are moist. NECK: Neck veins are not distended. CHEST: Clear to auscultation. CARDIOVASCULAR: Regular rate rhythm, S4 gallop. ABDOMEN: Obese. EXTREMITIES: Right lower extremity had no edema. SKIN: Cool and dry. NEUROLOGIC: Nonfocal. LABORATORY DATA: His ECG shows a sinus rhythm, evidence of previous inferior infarction. His workup in the Emergency Room today, sodium 137, potassium 3.9, BUN 21, creatinine 2.3, it was 2.0 in October. His liver function studies appear normal. Troponin elevated at 0.38. His white blood cell count 12.3, hemoglobin 12. IMPRESSION AND RECOMMENDATIONS: 1. Abdominal pain and nausea. Suspect gastroenteritis. 2. Coronary artery disease. Previous stent. I would continue Plavix. No recent angina. 3. Diabetes. 4. Hypertension. The patient is on an MICHEL inhibitor and beta aruna. 5. Hyperlipidemia. The patient is on a statin drug. 6. Peripheral arterial disease with previous amputation. 7. Chronic kidney disease. 8. Previous transient ischemic attack. No carotid stenosis noted. <ELECTRONICALLY SIGNED> By: Felix Ling MD, FACC 05/15/19 1807 1553 [id number] Ling MD, FACC /nt
--- NOTE | 2019-05-15 18:39 | NUR ---
PATIENT RESTING IN BED. UP WITH ASSIST X1 AND PROSTHETIC LEFT LEG. AOX4. IV FLUIDS PER ORDERS. BLADDER WAS SCANNED WITH POST VOID RESIDUAL LESS THAN 70 ML. HOURLY ROUNDING COMPLETED FOR PATINET SAFETY.
[2019-05-15 20:00] VITALS: BP 150/72
--- NOTE | 2019-05-15 20:00 | NUR ---
RECEIVED REPORT AND ASSUMED CARE OF PT, ASSESSMENT COMPLETED. PT LETHARGIC BUT AWAKENS EASILY AND ANSWERS QUESTIONS. IVF INFUSING. TELEMETRY ON SHOWING ST WITH RATE INTO 110'S. WILL CONT TO MONITOR AND ASSIST NEEDED.
[2019-05-16] VITALS: BP 122/87
--- NOTE | 2019-05-16 02:30 | NUR ---
PT BECAME VERY DIAPHORETIC WITH TACHPNEA. O2 SAT INITALLY 69%, O2 APPLIED. WHEEZING NOTED TO UPPER LUNGS. IVF STOPPED. WORKING WITH PT'S BREATHING, WAS ABLE TO KEEP O2 AT 2L/NC WITH SAT AT 97%. WITHIN 1 HR PT BECAME DIAPHORETIC AGAIN WITH TEMP OF 101.5. INCONT OF URINE DURING THIS TIME. BLADDER SCAN OF RESULTS OF ONLY 26CC. DR AGUILAR NOTIFIED WITH ORDERS RECEIVED.
[2019-05-16 03:57] VITALS: BP 112/56
[2019-05-16 04:29] LABS: HEMATOCRIT 33.1 % (42.0-52.0); MCH 28.2 pg (26.0-34.0); MCHC 33.2 g/dL (28.0-37.0); MPV 8.3 fl. (7.2-11.1); NUCLEATED RBCS 0 /100WBC; PLATELET COUNT* 174 thou/uL (150-400); RDW-CV 16.5 % (10.5-14.5); WBC 5.9 thou/uL (4.0-11.0)
[2019-05-16 04:59] LABS: ALBUMIN 2.6 g/dL (3.4-5.0); CALCIUM 7.9 mg/dL (8.5-10.1); POTASSIUM 3.4 mmol/L (3.5-5.1); TOTAL BILIRUBIN 0.5 mg/dL (<0.1-1.0)
[2019-05-16 05:00] LABS: CREATININE 5.1 mg/dL (0.6-1.3)
--- NOTE | 2019-05-16 06:30 | NUR ---
DUE TO PT BEING SO DIAPHORETIC, HAVING DIFFICULTY IN KEEPING TELE ELECTRODES ON. PT CONT TO SHOW ST RATE INTO 110'S BUT EARLIER SUSTAINING 130'S. TOTAL OF 5 COMPLETE BED LINEN CHANGES DUE TO DIAPHORESIS. PT INCONT OF URINE, DIURESED WELL WITH LASIX. PT ABLE TO TURN SELF IN BED FOR COMFORT. PT UNABLE TO ACHIEVE GOALS OF REST BUT REMAINS FREE OF INJURY. HOURLY ROUNDING OBSERVED.
[2019-05-16 06:34] LABS: ABSOLUTE LYMPHOCYTES 0.2 thou/uL (0.8-5.3); ABSOLUTE MONOCYTES 0.1 thou/uL (0.0-1.2); ABSOLUTE NEUTROPHILS 5.5 thou/uL (1.6-8.1); ANISOCYTOSIS 1+; PLATELET ESTIMATE ADEQUATE; POIKILOCYTOSIS 1+
[2019-05-16 08:04] VITALS: BP 112/63
[2019-05-16 12:00] VITALS: BP 99/55
--- NOTE | 2019-05-16 12:33 | CON ---
[address] [address] CONSULTATION Name: BARBARA LANDAVERDE Room: [address] IN M.R.#: [id number] Admission: 05/14/19 Attend Phys: Lilia Morgan Discharge: Date of : 52 Report #: [id number] THIS REPORT FOR: //name// CC: Felix Suárez DATE OF SERVICE: 05/15/2019 INFECTIOUS DISEASE CONSULTATION ATTENDING PHYSICIAN: Lilia Suárez M.D. REASON FOR EVALUATION: Complicated urinary tract infection, likely pyelonephritis. HISTORY OF PRESENT ILLNESS: Chart reviewed, patient examined. This is a 69-year-old gentleman with fairly extensive medical history, has diabetes mellitus complicated by vasculopathy, I think a degree of renal insufficiency as well, presented with abdominal pain described as somewhat generalized. He does have a known history of coronary artery disease. He attempted to treat with nitroglycerin without any benefit. He is somewhat lethargic. He notes he has been diaphoretic, although he states this is somewhat usual for him. He has had some temperature elevations, although he denies chills. On evaluation, he was felt to have left-sided pyelonephritis on exam as well as imaging. Urinalysis confirmed moderate pyuria, so empirically started on therapy with ceftriaxone. ALLERGIES: PENICILLINS, causes a rash. CURRENT MEDICATIONS: Include lisinopril, insulin, clopidogrel, aspirin, cyanocobalamin, duloxetine, folic acid, fenofibrate, ceftriaxone, atorvastatin, metoprolol, p.r.n. analgesics, antiemetics, and sliding scale insulin. PAST MEDICAL HISTORY: Diabetes mellitus which has been complicated by vasculopathy, previous acute myocardial infarction and stents, peripheral neuropathy, some renal insufficiency, arthritis, psoriasis, hypertension, lipidemia, and depression. SOCIAL HISTORY: Former smoker. No illicit drug use. Occasional ethanol. FAMILY HISTORY: Noncontributory. REVIEW OF SYSTEMS: Somewhat limited due to his lethargy. PHYSICAL EXAMINATION: GENERAL: Appears somewhat chronically ill and undernourished. He is obese. VITAL SIGNS: T-max 100.7, more recently 97.8; pulse 93; respirations 16; [place] [address] CONSULTATION Name: BARBARA LANDAVERDE Room: [address]#: [id number] Admission: 05/14/19 Attend Phys: Lilia Morgan Discharge: Date of : 52 Report #: [id number] pressure 111/63. SKIN: Moist, warm. HEENT: Normocephalic. Extraocular muscles intact. NECK: Supple. LUNGS: A few scattered coarse breath sounds, slightly diminished. HEART: Regular. Borderline tachycardic. I do not appreciate murmur. ABDOMEN: Obese, soft, and nontender. There are no peritoneal signs. Does have a lphfl-tqy-hxsd amputation on the left distal lower extremity. LABORATORY AND X-RAY DATA: CBC: White count 11.9 that is down from 12.3 on admission, H and H 11.8 and 34.7, platelets of 200. Electrolytes: Sodium 134, potassium 3.5, chloride 97, bicarbonate is 25, anion gap of 12, BUN and creatinine 31 and 3.9 that is up from 2.3 yesterday, glucose of 202. LFTs are unremarkable. Albumin of 2.9, total protein 7.0. Estimated GFR of 15. Urinalysis showed 6-15 white cells, 1-[address] of the abdomen and pelvis showed gas within the left renal collecting system including the calices and renal pelvis and also in ureter as well as gas within the urinary bladder. Influenza antigen was negative for both A and B. ASSESSMENT: Complicated inflammatory process involving the left kidney, ____ exclude infectious cause with the gas. There is question of gas forming organisms. We will adjust antimicrobial therapy at this point. He has got a PENICILLIN ALLERGY. We will use carbapenem and see how he does clinically. It is difficult to ascertain whether this will ____ development of some sort of emphysematous pyelonephritis. In that case, he may need surgical intervention. We will see how he does clinically in the next 24-48 hours. At this point, he is not overtly toxic, though he is ill. <ELECTRONICALLY SIGNED> By: Fortino Weber MD 05/16/19 1233 1135 0010Jogurpreet Weber MD /nt
--- NOTE | 2019-05-16 16:01 | NUR ---
ASSUMED PT CARE 0730. PT DIAPHORETIC. PT A/O X'S 4. VSS. AFEBRILE. PT TITRATED TO ROOM AIR. PT 100% ON ROOM AIR. PT REPORTS FEELING SOA WITH ACTIVITY. PT UP WITH 1, WALKER, GAIT BELT. PT HAD BM THIS SHIFT. PT SAT IN RECLINER ABOUT 1 1/2 HOURS.
[2019-05-16 16:41] VITALS: BP 103/59
--- NOTE | 2019-05-16 18:36 | NUR ---
NO C/O OF PAIN THIS SHIFT. PT ENCOURAGED TO USED INCENTIVE SPIROMETER. VSS.
[2019-05-16 20:00] VITALS: BP 131/77
[2019-05-17] VITALS (8 sets, daily range): BP systolic 103–163; BP diastolic 56–80
[2019-05-17 05:30] LABS: ALBUMIN 2.6 g/dL (3.4-5.0); CALCIUM 8.2 mg/dL (8.5-10.1); CREATININE 5.5 mg/dL (0.6-1.3); PHOSPHORUS* 4.2 mg/dL (2.5-4.9); POTASSIUM 3.6 mmol/L (3.5-5.1)
--- NOTE | 2019-05-17 09:10 | NUR ---
INITAL ASSESSMENT COMPLETED CHARTED. PT IS DYSPENIC AND TACHYPENIC. PHYSICIAN NOTIFIED. NEW ORDERS RECEIVED. MEDICATIONS GIVEN PER EMAR. REFER TO COMPUTER CHARTING FOR FURTHER DETAIL. HOURLY ROUNDING AND FALL PRECAUTIONS IN PLACE FOR PT SAFETY. CLWR.
[2019-05-17 18:04] LABS: PROTIME 10.6 Seconds (9.20-11.50)
--- NOTE | 2019-05-17 23:34 | NUR ---
PT TO ICU ROOM 5 AT 2310. SINUS TACH ON THE MONITOR, REPORTS SOME SOB, SOME WHEEZING NOTED. REMAINS ON BIPAP. TEMP 101.4F AXILLARY. DENIES PAIN OTHERWISE. WILL CONTINUE MONITORING.
[2019-05-18] VITALS (21 sets, daily range): BP systolic 59–128; BP diastolic 34–70
[2019-05-18 04:53] LABS: ALBUMIN 2.2 g/dL (3.4-5.0); CALCIUM 7.6 mg/dL (8.5-10.1); CREATININE 6.1 mg/dL (0.6-1.3); MAGNESIUM 2.4 mg/dL (1.8-2.4); PHOSPHORUS* 5.2 mg/dL (2.5-4.9); POTASSIUM 3.5 mmol/L (3.5-5.1)
--- NOTE | 2019-05-18 11:31 | OP ---
[address] [address] OPERATIVE REPORT Name: BARBARA LANDAVERDE Room: [address] IN M.R.#: [id number] Admission: 05/14/19 Attend Phys: Lilia Morgan Discharge: Date of : 52 Report #: [id number] THIS REPORT FOR: //name// CC: [facility] Felix Suárez DATE OF SERVICE: 05/17/2019 PREOPERATIVE DIAGNOSES: 1. Left emphysematous pyelonephritis. 2. Bilateral hydronephrosis. 3. Nephrolithiasis. 4. Acute renal failure. POSTOPERATIVE DIAGNOSES: 1. Left emphysematous pyelonephritis. 2. Bilateral hydronephrosis. 3. Nephrolithiasis. 4. Acute renal failure. PROCEDURE: Cystourethroscopy, bilateral retrograde pyelograms, and bilateral ureteral stent placement (6-Cayman Islander x 26 cm bilateral). SURGEON: Nae Fuentes MD ANESTHESIA: General. ESTIMATED BLOOD LOSS: None. COMPLICATIONS: None. SPECIMENS: Urine from left kidney for culture and sensitivity. INDICATIONS FOR PROCEDURE: The patient is a 69-year-old poorly controlled diabetic, who presented with abdominal pain, acute renal failure, and leukocytosis. He was also noted to have positive urine with preliminary culture growing Klebsiella. He has subsequently gotten fairly ill, and CT scan showed air in the left collecting system and ureter as well as a large stone in the left kidney that is likely causing at least intermittent obstruction. On the right side, he was noted to have mild right hydronephrosis on my review, although no stone was seen. It was discussed with the family that he should proceed with bilateral ureteral stent placement in the setting of his infection. Fortunately, he has been hemodynamically stable and afebrile. Risks of procedure were discussed including but not limited to infection; bleeding; injury to the urethra, bladder, or ureters; need for secondary procedures; [place] [address] OPERATIVE REPORT Name: DAHLIAQASIMBARBARAANKITA LAI Room: [address] IN ..#: [id number] Admission: 05/14/19 Attend Phys: Lilia Morgan Discharge: Date of : 52 Report #: [id number] pain; cardiopulmonary complications; and even . Daughter voiced clear understanding and provided consent for him, as he was unable to do so. DESCRIPTION OF PROCEDURE: After informed consent was obtained, the patient was taken back to the operating suite and placed supine. After induction of general anesthesia, he was placed in dorsal lithotomy position. Genitalia prepped and draped in standard fashion. The rigid cystoscope was advanced into the urethra, which was normal. There were no strictures. Prostate was short and nonobstructing. He did have a high riding bladder neck causing minor difficulty getting the scope into the bladder. Pancystoscopy was performed with 30 and 70 degree lenses. He was noted to have somewhat tubular structure bladder, but the mucosa was overall normal. The left UO was cannulated with the sensor wire, which was threaded up into the kidney without difficulty followed by the 5-Cayman Islander open-ended catheter. Wire was removed and urine was aspirated from the left kidney, which was frankly purulent. This was sent for culture and sensitivity. Contrast was injected gently to delineate the collecting system for stent placement, which revealed moderate hydronephrosis and a little difficult to get the renal pelvis to fill out, I think, due to air in the collecting system. The wire was replaced. Open-ended catheter was removed. A 6-Cay[place] Islander x 26 cm double-J stent was threaded over the wire. Good curl was seen within the renal pelvis and good curl was seen within the bladder under direct vision. Purulent urine was seen draining from the stent. Attention was turned to the right side. A sensor wire was threaded up into the right kidney, followed by a 5-Cayman Islander open-ended catheter over the wire. There was no purulent urine seen from the right side. Contrast was injected. This revealed mildly to moderately swollen right renal pelvis, but it did not really look like he had a UPJ obstruction; however, given the appearance and his clinical status, I elected to just go ahead and place a stent. Sensor wire was replaced, open-ended catheter was removed, and a 6-Cay[place] Islander x 26-cm double-J stent was threaded over the wire. Proximal curl was adjusted into the renal pelvis by grasping the stent distally and this was successful. Good curl was seen within the renal pelvis under fluoroscopy and good curl was seen within the bladder under direct vision. There was no purulence noted from the right side. The scope was removed, and a 16-Cayman Islander Guillen catheter was placed to dependent drainage and attached to a drainage bag. He was awoken, extubated, and taken to recovery in serious condition. He will be admitted back to telemetry if he remains stable. Otherwise, he may need ICU. We will see how he does in recovery. He will need delayed stone treatment once he is completely recovered and been treated for the infection. <ELECTRONICALLY SIGNED> By: Nae Fuentes MD 05/18/19 1131 2057 [id number] scott Lyn
--- NOTE | 2019-05-18 12:31 | NUR ---
ICU rounds: pt transferred to ICU last night d/t resp distress and AFib. Pt creat trending up. No plans for dc for a few days
--- NOTE | 2019-05-18 14:13 | 2DMMODE ---
[place] [address] 2 D/M-MODE ECHOCARDIOGRAM Name: EDNA LANDAVERDEMargy LAI Room: [facility] IN .R.#: [id number] Admission: 05/14/19 Attend Phys: Lilia desai Sa Discharge: Date of : 52 Date of Service: 05/18/19 1412 Report #: [id number] THIS REPORT FOR: //name// APPROVED REPORT Study performed: 05/18/2019 09:17:52 EXAM: Comprehensive 2D, Doppler, and color-flow Echocardiogram Patient Location: In-Patient Room #: [facility] Status: routine BSA: 2.61 HR: 120 bpm BP: 89/59 mmHg Rhythm: Atrial Fibrillation Other Information Study Quality: Adequate Indications Atrial Fibrillation 2D Dimensions IVSd: 15.10 (7-11mm) LVOT Diam: 21.67 (18-24mm) LVDd: 50.63 mm PWd: 11.91 (7-11mm) Ascending Ao: 37.17 (22-36mm) LVDs: 39.04 (25-40mm) Aortic Root: 37.18 mm Volumes Left Atrial Volume (Systole) LA ESV Index: 26.60 mL/m2 Aortic Valve AoV Peak Stuart.: 1.02 m/s AO Peak Gr.: 4.15 mmHg LVOT Max P.70 mmHg AO Mean Gr.: 2.42 mmHg LVOT Mean P.47 mmHg LVOT Max V: 0.82 m/s AO V2 VTI: 15.44 cm LVOT Mean V: 0.56 m/s ENRICO (VTI): 3.06 cm2 LVOT V1 VTI: 12.84 cm TDI Medial E' Stuart.: 0.14 m/s Lateral E' Stuart.: 0.14 m/[place] [address] 2 D/M-MODE ECHOCARDIOGRAM Name: DAHLIAQASIMBARBARAANKITA LAI Room: [address] IN .R.#: [id number] Admission: 05/14/19 Attend Phys: Lilia desai Sa Discharge: Date of : 52 Date of Service: 05/18/19 1412 Report #: [id number] Pulmonary Valve PV Peak Stuart.: 0.84 m/s PV Peak Gr.: 2.80 mmHg Left Ventricle The left ventricle is normal size. There is normal LV segmental wall motion. Mild concentric left ventricular hypertrophy. Left ventricular systolic function is normal. The left ventricular ejection fraction is within the normal range. LVEF is 55-60%. Right Ventricle The right ventricle is normal size. The right ventricular systolic function is normal. Atria The left atrium size is normal. The right atrium size is normal. Aortic Valve Mild aortic valve sclerosis. No aortic regurgitation is present. There is no aortic valvular stenosis. Mitral Valve The mitral valve is normal in structure. Mild mitral regurgitation. No evidence of mitral valve stenosis. Tricuspid Valve The tricuspid valve is normal in structure. Trace tricuspid regurgitation. Pulmonic Valve The pulmonary valve is normal in structure. There is no pulmonic valvular regurgitation. Great Vessels The aortic root is normal in size. IVC is normal in size and collapses >50% with inspiration. Pericardium There is no pericardial effusion. <Conclusion> LVEF is 55-60%. Mild concentric [place] [address] 2 D/M-MODE ECHOCARDIOGRAM Name: BARBARA LANDAVERDE MING Room: [address] IN M.R.#: [id number] Admission: 05/14/19 Attend Phys: Lilia desai Sa Discharge: Date of : 52 Date of Service: 05/18/191411 Report #: [id number] Mild aortic valve sclerosis. Mild mitral regurgitation. <ELECTRONICALLY SIGNED> By: Felix Ling MD, [facility] 05/18/19 [phone] Felix Ling MD, FACC /INF
[2019-05-19] VITALS (13 sets, daily range): BP systolic 98–155; BP diastolic 59–119
[2019-05-19 04:04] LABS: HEMATOCRIT 26.8 % (42.0-52.0); HEMOGLOBIN 9.1 gm/dL (14.0-18.0); MCH 28.5 pg (26.0-34.0); MCHC 33.8 g/dL (28.0-37.0); MCV 84.3 fL (80.0-100.0); MPV 9.3 fl. (7.2-11.1); RBC 3.18 mil/uL (4.50-6.00); RDW-CV 17.6 % (10.5-14.5); WBC 6.4 thou/uL (4.0-11.0)
[2019-05-19 04:21] LABS: CALCIUM 7.5 mg/dL (8.5-10.1); CREATININE 5.7 mg/dL (0.6-1.3); MAGNESIUM 2.6 mg/dL (1.8-2.4); PHOSPHORUS* 5.6 mg/dL (2.5-4.9); POTASSIUM 3.4 mmol/L (3.5-5.1)
--- NOTE | 2019-05-19 20:07 | NUR ---
INITAL ASSESMENT COMPLETED AT 2029. PT'S BLOOD PRESSURE ELEVATED. SPOKE WITH DR GARCÍA TO REPORT FINDINGS. RECIEVED NEW ORDERS.
--- NOTE | 2019-05-19 20:12 | NUR ---
RECEIVED REPORT AND ASSUMED CARE AT 0700. VSS. ICU MONITORING IN PLACE. PT DENIES COMPLAINTS OF PAIN. ASSESSMENT COMPLETED CHARTED. PT UP WITH ASSIST. BED LOCKED IN LOWEST POSITION, CALL LIGHT WITHIN REACH. BED ALARM ON. POSITION CHANGED EVERY TWO HOURS. ROUNDING COMPLETED AND ALL NEEDS MET.
[2019-05-20] VITALS (22 sets, daily range): BP systolic 123–216; BP diastolic 57–166
[2019-05-20 04:53] LABS: ALBUMIN 2.1 g/dL (3.4-5.0); CALCIUM 7.9 mg/dL (8.5-10.1); CREATININE 4.8 mg/dL (0.6-1.3); MAGNESIUM 2.6 mg/dL (1.8-2.4); PHOSPHORUS* 5.5 mg/dL (2.5-4.9); POTASSIUM 3.4 mmol/L (3.5-5.1)
--- NOTE | 2019-05-20 19:00 | NUR ---
RASH AROUND THE NECK AND UPPER CHEST PRESENT. HAS NOT CHANGED SINCE THIS AM. PATIENT STATES THAT HE IS TIRED FOR MOST OF THE DAY, PT/OT CONSULTS ORDERED. FAMILY UPDATED VIA PHONE.
[2019-05-21 01:00] VITALS: BP 130/62
--- NOTE | 2019-05-21 02:50 | NUR ---
ASSUMED CARE 1900H,ON RA AND TOLERATED.NO COMPLAIN OF PAIN. WITH FC AND TEA COLORED URINE WITH BLOOD TINGED NOTED.STILL WITH NECK AND CHEST RASH.REPORT GIVEN TO TELE NURSE AND TAKEN TO 203 AT 0020H.
[2019-05-21 04:00] VITALS: BP 133/77
--- NOTE | 2019-05-21 06:05 | NUR ---
RECEIVED REPORT FROM KATHIA REYES. PT TRANSFERRED TO RM 203. PT A&OX4. VSS. 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 PT ON RA. PT TRACING AFIB ON TELE. PT DENIES ANY PAIN OR DISCOMFORT. PT TURNED TO SIDES. CALL LIGHT WITHIN REACH.
[2019-05-21 06:08] LABS: ALBUMIN 2.1 g/dL (3.4-5.0); CALCIUM 8.7 mg/dL (8.5-10.1); CREATININE 3.9 mg/dL (0.6-1.3); PHOSPHORUS* 4.6 mg/dL (2.5-4.9); POTASSIUM 3.2 mmol/L (3.5-5.1)
[2019-05-21 11:16] VITALS: BP 126/65
[2019-05-21 16:00] VITALS: BP 139/72
--- NOTE | 2019-05-21 18:46 | NUR ---
ASSUMED PT CARE AT 0700, PT A&O X4, LETHARGIC, UP WITH ASSIST X2, FIBER ANALYST TRACING AFIB, FULL ASSESSMENT CHARTED. HAMLIN IS PATENT, DRAINING BLOOD TINGED URINE, PT DENIES ANY PAIN. Q 2 HOUR TURNS AND HOURLY ROUNDING COMPLETED.
[2019-05-21 20:00] VITALS: BP 133/68
[2019-05-22] VITALS (7 sets, daily range): BP systolic 120–139; BP diastolic 55–71
[2019-05-22 05:22] LABS: HEMATOCRIT 32.2 % (42.0-52.0); HEMOGLOBIN 10.6 gm/dL (14.0-18.0); MCH 27.8 pg (26.0-34.0); MCHC 32.9 g/dL (28.0-37.0); MCV 84.6 fL (80.0-100.0); NUCLEATED RBCS 0 /100WBC; PLATELET COUNT* 324 thou/uL (150-400); RBC 3.81 mil/uL (4.50-6.00); RDW-CV 17.6 % (10.5-14.5)
--- NOTE | 2019-05-22 05:23 | NUR ---
ASSUMED CARE OF PT AFTER REPORT AT 1930. PT A&OX4. VSS. PHYSICAL ASSESSMENT COMPLETED AND CHARTED. PT ON RA. PT TRACING AFIB ON TELE. PT WITH HAMLIN TO DEPENDENT DRAIN. PT TURNED TO SIDES. PT DENIES ANY PAIN OR DISCOMFORT. PT ABLE TO SLEEP WELL ON BED. CALL LIGHT WITHIN REACH.
[2019-05-22 05:39] LABS: PREALBUMIN 10.6 mg/dL (18.0-35.7)
[2019-05-22 05:50] LABS: CALCIUM 8.8 mg/dL (8.5-10.1); CREATININE 3.2 mg/dL (0.6-1.3); POTASSIUM 3.2 mmol/L (3.5-5.1); TOTAL BILIRUBIN 0.4 mg/dL (<0.1-1.0); TOTAL PROTEIN 6.1 g/dL (6.4-8.2)
[2019-05-22 06:33] LABS: ABSOLUTE EOSINOPHILS 0.1 thou/uL (0.0-0.7); ABSOLUTE LYMPHOCYTES 0.9 thou/uL (0.8-5.3); ABSOLUTE MONOCYTES 0.4 thou/uL (0.0-1.2); ABSOLUTE NEUTROPHILS 9.6 thou/uL (1.6-8.1); ANISOCYTOSIS 1+; PLATELET ESTIMATE ADEQUATE
--- NOTE | 2019-05-22 11:42 | NUR ---
CM discussed skilled with Pt, Pt wants to dc to home with HH. Pt states that he has family that can assist him if needed. CM left a VM for Pt's dtr to determine family's availability to assist Pt at home. Following.
--- NOTE | 2019-05-22 13:50 | NUR ---
CM spoke with Pt's dtr, she is in agreement with Pt going to skilled prior to returning home, dtr spoke with Pt and he is in agreement though he prefers to return home at [place]. Faxed referrals to [facility] and [facility], CM asked SNF to initiate insurance auth if able to accept. Following
--- NOTE | 2019-05-22 17:08 | NUR ---
I have reviewed the documentation by KALE AGARWAL from 05/22/19 to 05/22/19 and I concur with it. ALMA BRUNO
--- NOTE | 2019-05-22 18:25 | NUR ---
ASSUMED PT CARE AT 0700, PT A&O X4, VSS, RA, FOOD COUNTER WORKER TRACING AFIB, HAMLIN PATENT, DRAINING BLOOD TINGED URINE WITH MINIMAL SEDIMENT, FULL ASSESSMENT CHARTED. PT UP TO CHAIR WITH PT/OT, TOLERATING WELL, POSSIBLE DC TOMORROW WITH HOME HEALTH, HOURLY ROUNDING COMPLETED.
[2019-05-23 04:04] VITALS: BP 144/66
--- NOTE | 2019-05-23 05:23 | NUR ---
ASSUMED CARE OF PT AFTER REPORT AT 1930. PT A&OX4. VSS. PHYHSICAL ASSESSMENT COMPLETED AND CHARTED. PT ON RA. PT TRACING AFIB ON TELE. PT WITH HAMLIN TO DEPENDENT DRAIN. PT DENIES ANY PAIN OR DISCOMFORT. PT TURNED TO SIDES. PT ABLE TO SLEEP WELL ON BED. CALL LIGHT WITHIN REACH.
[2019-05-23 12:00] VITALS: BP 135/57
--- NOTE | 2019-05-23 13:40 | NUR ---
Pt discharging to [facility] today. Faxed dc orders. Chart copied. Nurse report number is [id number]. Updated Pt's dtr. 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
[2019-05-23] MEDS ORDERED: LEVAQUIN 500 M500 M3 PO (14:49)
[2019-05-23] MEDS ORDERED: DILTIAZEM 24HR240 M1 PO (15:05)
[2019-05-23] MEDS ORDERED: CLARITIN10 MG PO (15:06)
[2019-05-23] MEDS ORDERED: IPRAT-ALBUT 0.5-3 ML INH (15:12)
[2019-05-23] MEDS ORDERED: HUMALOG100 UNIT/1 SUBQ (15:18)
[2019-05-23] MEDS ORDERED: LANTUS SUBQ (15:19)
[2019-05-23] MEDS ORDERED: LEVSIN-SL0.125 MG SUBLING (15:23)
[2019-05-23] MEDS ORDERED: LIDODERM1 EACH TRANSDERM (15:25)
[2019-05-23] MEDS ORDERED: LOPRESSOR50 MG PO (15:27)
[2019-05-23 15:39] VITALS: BP 135/57
--- NOTE | 2019-05-23 16:40 | NUR ---
ASSUMED PT CARE AT 0700, PT A&O X4, RA, VSS, DREDGE PIPEMAN TRACING AFIB, FULL ASSESSMENT CHARTED. PT DISCHARGED TO REHAB FACILITY, EDUCATED ON ALL DISCHARGE INSTRUCTIONS INCLUDING MEDICATIONS AND FOLLOW UP APPOINTMEENTS, REPORT CALLED IN TO NURSE AT [facility], IV AND DREDGE PIPEMAN REMOVED, HOURLY ROUNDING COMPLETED.
== END 2019-05-23 15:57 | DRG 853 ==
LOC: M.ERS 08:09 → M.2W 11:22 → M.TBA-ER 11:22 → M.2W 17:05 → M.ICU 05-17 22:23 → M.2W 05-21 00:50
PROVIDERS: Family Medicine; Internal Medicine; Internal Medicine Nephrology; Urology; ADMIT Family Medicine
DX: A41.9 Sepsis, unspecified organism (principal); N17.0 Acute kidney failure with tubular necrosis; E43 Unspecified severe protein-calorie malnutrition; N13.6 Pyonephrosis; I24.8 Other forms of acute ischemic heart disease; G93.40 Encephalopathy, unspecified; I13.0 Hypertensive heart and chronic kidney disease with heart failure and stage 1 through stage 4 chronic kidney disease, or unspecified chronic kidney disease; F32.9 Major depressive disorder, single episode, unspecified; M19.90 Unspecified osteoarthritis, unspecified site; E11.40 Type 2 diabetes mellitus with diabetic neuropathy, unspecified; E78.5 Hyperlipidemia, unspecified; E11.51 Type 2 diabetes mellitus with diabetic peripheral angiopathy without gangrene; I25.10 Atherosclerotic heart disease of native coronary artery without angina pectoris; E11.42 Type 2 diabetes mellitus with diabetic polyneuropathy; N18.3 Chronic kidney disease, stage 3 (moderate); I50.9 Heart failure, unspecified; E11.22 Type 2 diabetes mellitus with diabetic chronic kidney disease; B96.89 Other specified bacterial agents as the cause of diseases classified elsewhere; B96.1 Klebsiella pneumoniae [K. pneumoniae] as the cause of diseases classified elsewhere; I25.2 Old myocardial infarction; Z95.5 Presence of coronary angioplasty implant and graft; Z86.73 Personal history of transient ischemic attack (TIA), and cerebral infarction without residual deficits; Z98.42 Cataract extraction status, left eye; Z98.41 Cataract extraction status, right eye; Z89.512 Acquired absence of left leg below knee; Z88.0 Allergy status to penicillin; Z88.8 Allergy status to other drugs, medicaments and biological substances; Z82.49 Family history of ischemic heart disease and other diseases of the circulatory system; Z68.32 Body mass index [BMI] 32.0-32.9, adult

== ENCOUNTER 2019-06-28 11:15 | Inpatient (IN) | payer OTHER ==
[~2019-06-28] VITALS: Ht 198.1 cm; Wt 116.8 kg
[~2019-06-28 11:15] MED LIST changes: +ACTOS 45 MG45 MG PO; +CLARITIN10 MG PO; +DILTIAZEM 24HR240 M1 PO; -FOLIC ACID1 MG PO; +GABAPENTIN 100100 MG PO; +HUMALOG100 UNIT/1 SUBQ; +IPRAT-ALBUT 0.5-3 ML INH; +LANTUS SUBQ; +LEVAQUIN 500 M500 M3 PO; +LEVSIN-SL0.125 MG SUBLING; +LOPRESSOR50 MG PO; -MAGNESIUM OXID200 MG PO; +MAGNESIUM OXID250 MG PO; -NEURONTIN 300300 M1 PO; +RENAL-VITE TAB0.8 MG PO; +TOUJEO SOL300 UNIT/1 SUBQ; -VITAMIN B-12500 MCG PO; +VITAMIN B-125000 MC2 PO
[2019-06-28] MEDS ORDERED: CYMBALTA30 MG PO (12:25)
[2019-06-28] MEDS ORDERED: GLUCOSAMINE &1 EAC1 PO (12:32)
[2019-06-28] MEDS ORDERED: XARELTO15 MG PO (12:34)
[2019-06-28] MEDS ORDERED: METFORMIN HCL500 M3 PO (12:35)
[2019-06-28] MEDS ORDERED: VITAMIN E1000 UNIT PO (12:36)
[2019-06-28] MEDS ORDERED: B-6200 MG PO (12:36)
[2019-06-28] MEDS ORDERED: NORCO 5-325 TA1 EAC1 PO (15:43)
[2019-06-28 17:51] LABS: HEMATOCRIT 38.6 % (42.0-52.0); HEMOGLOBIN 12.6 gm/dL (14.0-18.0); MCH 28.9 pg (26.0-34.0); MCHC 32.7 g/dL (28.0-37.0); MCV 88.2 fL (80.0-100.0); RBC 4.38 mil/uL (4.50-6.00); RDW-CV 17.5 % (10.5-14.5)
[2019-06-28 17:53] LABS: WBC 1.2 thou/uL (4.0-11.0)
[2019-06-28 18:00] VITALS: BP 150/78
[2019-06-28 18:05] LABS: CALCIUM 9.5 mg/dL (8.5-10.1); CREATININE 2.7 mg/dL (0.6-1.3); POTASSIUM 4.2 mmol/L (3.5-5.1)
[2019-06-28 18:15] VITALS: BP 130/105
[2019-06-28 19:00] VITALS: BP 118/67
[2019-06-28 21:49] LABS: INFLUENZA A ANTIGEN Negative (Negative); INFLUENZA B ANTIGEN Negative (Negative)
[2019-06-29] VITALS (38 sets, daily range): BP systolic 79–126; BP diastolic 37–76
[2019-06-29 00:07] LABS: BE -3.2 mmol/L (-2 to +3); PCO2 34.8 mmHg (35.0-45.0); PO2 77.9 mmHg (75.0-100.0); pH 7.398 (7.340-7.450)
[2019-06-29 01:45] LABS: BE -4.4 mmol/L (-2 to +3); HEMATOCRIT 34.5 % (42.0-52.0); HEMOGLOBIN 11.1 gm/dL (14.0-18.0); MCH 29.4 pg (26.0-34.0); MCHC 32.2 g/dL (28.0-37.0); MCV 91.1 fL (80.0-100.0); MPV 8.3 fl. (7.2-11.1); NUCLEATED RBCS 0 /100WBC; PCO2 VENOUS 51.2 mmHg (41.0-51.0); PO2 VENOUS 49.4 mmHg (35.0-45.0); RBC 3.78 mil/uL (4.50-6.00); RDW-CV 17.6 % (10.5-14.5)
[2019-06-29 01:48] LABS: PLATELET COUNT* 141 thou/uL (150-400); WBC 7.7 thou/uL (4.0-11.0)
[2019-06-29 01:57] LABS: INR 1.3; PROTIME 13.1 Seconds (9.20-11.50)
[2019-06-29 02:04] LABS: CALCIUM 8.6 mg/dL (8.5-10.1); CREATININE 3.4 mg/dL (0.6-1.3); POTASSIUM 4.5 mmol/L (3.5-5.1)
[2019-06-29 02:09] LABS: ALBUMIN 3.1 g/dL (3.4-5.0); TOTAL BILIRUBIN 0.4 mg/dL (<0.1-1.0); TOTAL PROTEIN 6.9 g/dL (6.4-8.2)
[2019-06-29 02:29] LABS: ABSOLUTE LYMPHOCYTES 0.2 thou/uL (0.8-5.3); ABSOLUTE MONOCYTES 0.2 thou/uL (0.0-1.2); ABSOLUTE NEUTROPHILS 7.4 thou/uL (1.6-8.1); ANISOCYTOSIS 1+; PLATELET ESTIMATE DECREASED; TOXIC GRANULATION 2+
--- NOTE | 2019-06-29 10:43 | CON ---
[address] [address] CONSULTATION Name: BARBARA LANDAVERDE Room: [address] IN M.R.#: [id number] Admission: 06/28/19 Attend Phys: Daniel Uriostegui Discharge: Date of : 52 Report #: [id number] THIS REPORT FOR: //name// cc: Felix Diaz MD, David L. MD ~ THIS REPORT FOR: //name// CC: Felix Peters DATE OF SERVICE: 06/29/2019 INFECTIOUS DISEASE CONSULTATION ATTENDING PHYSICIAN: Joyce Peters MD REASON FOR EVALUATION: Sepsis. HISTORY OF PRESENT ILLNESS: Postoperative urological procedure due to obstructive uropathy with bilateral renal lithiasis, known history of recent complicated UTI is notable. I have seen him roughly 6 weeks ago. He does have diabetes mellitus complicated by vasculopathy, some renal insufficiency, who had been treated for complicated UTI. He returned for followup elective procedure to exchange the stents and do a laser guided lithotripsy, which he did undergo. Postop course was complicated by worsening hemodynamic instability, clinical picture of sepsis with marked lactic acidemia. He was transferred to the intensive care unit, had been quite somnolent. Apparently, denied any significant fevers or chills. Preop had been noticed some atrial fibrillation. He is now on heparin drip. This a.m. he is lucid. He has no recollection last evening. Initial blood cultures are sterile. Urine cultures in progress. Lactic acid was high at 5.0. Serial lactic acids, most recently 2.8. Initial CBC: White count of 1.2. This has rebounded back to 7.7. He has not required pressor support. At this point, he is on supplemental oxygen per nasal cannula. ALLERGIES: PENICILLINS CAUSES A RASH, APIXABAN. CURRENT MEDICATIONS: Include clopidogrel, duloxetine, gabapentin, fluconazole, pyridoxine, magnesium oxide, glucosamine, folic acid, fenofibrate, cyanocobalamin, metformin, hydrocodone, meropenem, atorvastatin, p.r.n. analgesics and antiemetics. PAST MEDICAL HISTORY: As described above, has known vasculopathy, coronary artery disease, history of atrial fibrillation, diabetes mellitus type 2, arthritis, peripheral neuropathy, TIA, psoriasis, hypertension, hyperlipidemia, [place] [address] CONSULTATION Name: BARBARA LANDAVERDE Room: [address]#: [id number] Admission: 06/28/19 Attend Phys: Daniel Uriostegui Discharge: Date of : 52 Report #: [id number] SOCIAL HISTORY: Former smoker, occasional ethanol, no illicit drug use. FAMILY HISTORY: Noncontributory. REVIEW OF SYSTEMS: Otherwise, unremarkable 10-point review of systems. Denies significant gastrointestinal-related complaints at present. PHYSICAL EXAMINATION: GENERAL: He appears reasonably well nourished. He is alert at this point and cooperative. VITAL SIGNS: Temperature 98.3, pulse 87, respirations 23, blood pressure 107/68. SKIN: Warm, dry. HEENT: Normocephalic. Extraocular muscles intact. NECK: Supple. LUNGS: Generally clear to auscultation bilaterally. HEART: Regular. I do not appreciate a murmur. ABDOMEN: Obese, soft, nontender. EXTREMITIES: No cyanosis. 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 GENITOURINARY AND RECTAL: Deferred. LABORATORY DATA: As described above. Recent CBC: White count 7.7, on admission it was 1.2, H and H 11.1 and 34.5, platelets of 141. Electrolytes: Sodium 140, potassium 4.5, chloride 105, bicarbonate is 23, anion gap of 12, BUN and creatinine 34 and 3.4. LFTs unremarkable. Albumin 3.1, total protein 6.9, estimated GFR of 18. Most recent lactic acid of 2.8, after being high at 5. ABGs: pH 7.398, pCO2 of 34.8, pO2 of 77.9, it was on 2 liters. Influenza antigen was negative. Culture from 05/14/2019 of the urine showed Klebsiella aerogenes that was in vitro resistant to penicillin, cephalosporins, also susceptible to quinolones, aminoglycosides, carbapenems, trimethoprim/sulfamethoxazole. ASSESSMENT AND PLAN: Sepsis, likely due to manipulation of the genitourinary tract with the stent exchanges, lithotripsy, presumably Gram-negative rods, Klebsiella. We will continue meropenem. We will adjust the dosing to 500 b.i.d. given his renal insufficiency. We will await culture results. I suspect he will have a quick recovery at this point given the nature of this. We will add incentive spirometry. Again, monitor expectantly. <ELECTRONICALLY SIGNED> By: Fortino Weber MD 06/29/19 1043 0953 1041Jogurpreet Weber MD /nt
--- NOTE | 2019-06-29 11:37 | EKG ---
[place] [address] ELECTROCARDIOGRAM REPORT Name: AMANDAIRENEQASIMBARBARA MING Room: [address] ADM IN M.R.#: [id number] Admission: 06/28/19 Attend Phys: Joyce Peters Discharge: Date of : 52 Date of Service: 06/28/19 1710 Report #: [id number] THIS REPORT FOR: //name// [facility] Test Date: 2019-06-28 Test Time: 17:10:42 Pat Name: BARBARA LANDAVERDE Department: Room: [address] Gender: M Pharmacy Aide: EBER : 1950 Requested By: Joyce Peters Order Number: [id number] Reading MD: Emiliano Young Measurements Intervals [place]row Rate: 147 P: 45 NV: 26 QRS: -14 QRSD: 117 T: 240 QT: 368 QTc: 576 Interpretive Statements Sinus tachycardia Incomplete right bundle branch block Inferior infarct, age indeterminate Compared to ECG 05/14/2019 08:57:47 Incomplete right bundle-branch block now present Left ventricular hypertrophy no longer present Myocardial infarct finding still present Electronically Signed On 06-29-2019 11:36:17 CREDENTIALER by Emiliano Young [email or web address] <ELECTRONICALLY SIGNED> By: Emiliano Young MD, [facility] 06/29/19 1136 09 09 Emiliano Young MD, [facility] /EPI
--- NOTE | 2019-06-29 11:40 | EKG ---
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 : 1950 Requested By: Joyec Peters Order Number: [id number] Reading MD: Emiliano Young Measurements Intervals Stuart Rate: 98 P: UT: QRS: 7 QRSD: 126 T: 50 QT: 374 QTc: 478 Interpretive Statements Atrial fib-flutter with moderate response Nonspecific intraventricular conduction delay Inferior infarct, old Compared to ECG 05/14/2019 08:57:47 atrial fib-flutter is noted Intraventricular conduction delay now present Sinus tachycardia no longer present Left ventricular hypertrophy no longer present Myocardial infarct finding still present Electronically Signed On 06-29-2019 11:38:59 DATA COMMUNICATIONS ANALYST by Emiliano Young [email or web address] <ELECTRONICALLY SIGNED> By: Emiliano Young MD, [facility] 06/29/19 1138 Emiliano Young MD, [facility] /EPI
--- NOTE | 2019-06-29 13:40 | 2DMMODE ---
[place] [address] 2 D/M-MODE ECHOCARDIOGRAM Name: BARBARA LANDAVERDE Room: 007-P ADM IN .R.#: [id number] Admission: 06/28/19 Attend Phys: Joyce Peters Discharge: Date of : 52 Date of Service: 06/29/19 1339 Report #: [id number] THIS REPORT FOR: cc: Felix Diaz MD, David L. MD Holkins,Emiliano Perez MD [facility] ~ APPROVED REPORT Study performed: 06/29/2019 11:54:39 EXAM: Limited 2D Echocardiogram Patient Location: In-Patient Room #: [facility] Status: routine BSA: 2.52 HR: 102 bpm BP: 116/76 mmHg Rhythm: NSR Other Information Study Quality: Good Indications Arrhythmia Atrial Fibrillation 2D Dimensions IVSd: 15.50 (7-11mm) LVDd: 54.57 mm PWd: 13.62 (7-11mm) LVDs: 47.71 (25-40mm) Left Ventricle The left ventricle is normal size. There is normal LV segmental wall motion. Mild concentric left ventricular hypertrophy. Left ventricular systolic function is borderline. LVEF is 50-55%. This study is not technically sufficient to allow evaluation of the LV diastolic function due to atrial fibrillation. Right Ventricle The right ventricle is normal size. The right ventricular systolic function is normal. Atria Left atrium is mildly dilated. The right atrium size is [facility] [address] [place] [address] 2 D/M-MODE ECHOCARDIOGRAM Name: BARBARA LANDAVERDE MING Room: [address] IN .R.#: [id number] Admission: 06/28/19 Attend Phys: Joyce Peters Discharge: Date of : 52 Date of Service: 06/29/19 1339 Report #: [id number] normal. Aortic Valve Mild aortic valve sclerosis. Mitral Valve The mitral valve is normal in structure. Tricuspid Valve The tricuspid valve is normal in structure. Pulmonic Valve The pulmonary valve is normal in structure. Great Vessels The aortic root is normal in size. IVC is normal in size and collapses >50% with inspiration. Pericardium There is no pericardial effusion. <Conclusion> The left ventricle is normal size. Left ventricular systolic function is borderline. LVEF is 50-55%. This study is not technically sufficient to allow evaluation of the LV diastolic function due to atrial fibrillation. The right ventricle is normal size. Left atrium is mildly dilated. The right atrium size is normal. Mild aortic valve sclerosis. The mitral valve is normal in structure. The tricuspid valve is normal in structure. IVC is normal in size and collapses >50% with inspiration. There is normal LV segmental wall motion. <ELECTRONICALLY SIGNED> By: Emiliano Young MD, FACC 06/29/19 1339 1339 1339 Emiliano Young MD, FACC /INF
[2019-06-30] VITALS (7 sets, daily range): BP systolic 110–160; BP diastolic 62–85
[2019-06-30 04:56] LABS: ALBUMIN 2.9 g/dL (3.4-5.0); CREATININE 2.9 mg/dL (0.6-1.3); POTASSIUM 4.5 mmol/L (3.5-5.1); TOTAL BILIRUBIN 0.4 mg/dL (<0.1-1.0); TOTAL PROTEIN 6.2 g/dL (6.4-8.2)
--- NOTE | 2019-06-30 13:25 | OP ---
[address] [address] OPERATIVE REPORT Name: BARBARA LANDAVERDE Room: [address] IN M.R.#: [id number] Admission: 06/28/19 Attend Phys: Daniel Uriostegui Discharge: Date of : 52 Report #: [id number] THIS REPORT FOR: //name// cc: Felix Diaz MD, David L. MD ~ THIS REPORT FOR: //name// CC: [facility] Felix Peters DATE OF SERVICE: 06/28/2019 PREOPERATIVE DIAGNOSIS: Bilateral nephrolithiasis. POSTOPERATIVE DIAGNOSIS: Bilateral nephrolithiasis. PROCEDURE: Cystourethroscopy, bilateral ureteral stent removal, bilateral retrograde pyelograms, bilateral ureteroscopy, laser lithotripsy and basket extraction of stone and bilateral ureteral stent replacement (6 x 26). SURGEON: Nae Fuentes M.D. ANESTHESIA: General. ESTIMATED BLOOD LOSS: None. COMPLICATIONS: None. SPECIMENS: Stone for analysis and culture. INDICATIONS FOR PROCEDURE: The patient is a 69-year-old diabetic male who presented a few weeks ago with urosepsis due to gas forming organism. He had emphysematous pyelitis bilaterally and he was noted to have stone in the right kidney as well as some UPJ stone on the left. He completed antibiotic therapy and now presents for stone treatment. Risks of procedure were discussed including but not limited to infection, bleeding, injury to the urethra, bladder, ureters, need for secondary procedures, stent pain, cardiopulmonary complications. He voiced understanding and wished to proceed. DESCRIPTION OF PROCEDURE: After informed consent was obtained, the patient was taken back to the operating suite and placed supine. After induction of general anesthesia, he was placed in dorsal lithotomy position. Genitalia prepped and draped in standard fashion. Rigid cystoscopy was performed. Urethra was normal. Prostate was small and minimally obstructing. Bladder was normal and both stents were seen protruding from both UOs. [place] [address] OPERATIVE REPORT Name: BARBARA LANDAVERDE Room: [address] IN .R.#: [id number] Admission: 06/28/19 Attend Phys: Daniel Uriostegui Discharge: Date of : 52 Report #: [id number] right side. The stent was externalized at the meatus and sensor wire was threaded into the kidney. Dual lumen catheter was used to place a second wire. A 04/21 ureteral access sheath was placed over one of the wires to the proximal ureter. Flexible scope was advanced up into the kidney. He had some amorphous looking stone encountered in the right lower pole. This was basketed and deposited in the upper pole to make it easier for lasering. The stone looked like some calcium component, but the center was quite amorphous and not typical for most stones. I suspect this is either a matrix stone or potentially a fungal ball that was calcified as he did have yeast present on his preoperative culture, which he was treated for. The laser was used to try to break up the stone, but this was quite difficult due to the central nature of the stone; however, I was able to fragment it enough that I could basket it and remove it. On palpation, the stone was quite thick and gelatinous to feel. All calices were then inspected and no other stone was seen in the right kidney. Retrograde was performed. This revealed no further filling defects. The scope was backed out along with the sheath. There was no injury from the sheath. The 6-Haitian x 26-cm double-J stent was threaded over the wire. Good curl was seen within the renal pelvis under fluoroscopy and good curl was seen within the bladder under direct vision. Attention was turned to the left side. The stent was externalized at the meatus and a sensor wire was threaded up into the kidney. Using a dual lumen, a second wire was placed. The 12/14 was threaded up into the kidney. There was a slight bit of resistance in the distal ureter, but this passed without much difficulty. Flexible scope was advanced up into the kidney. A large oblong stone was seen, looking to be similar in material to the right side in the renal pelvis. Same thing occurred. I tried to laser, but this was difficult because of the nature of the stone. At one point some whitish cloudy material came out of the stone and I thought maybe this was more a fungus ball, so I did send stone for both analysis and culture. I ordered an intraoperative dose of Diflucan along with the preoperative Cipro he got and he did receive this. Pieces were basketed and it was the same type of material. Similar stones were found in the mid and lower pole and these were also lasered and basketed in sequential order. In the lower pole, a lot of the stone appeared to be completely adherent to the underlying papilla and despite extended efforts to try to clear that lower pole, it was difficult to detach it from the underlying tissue due to the nature of the stone with the laser and I could not basket it either, so there is still some stone remaining in that lower pole. I do not particularly think a perk will be necessary unless he has any further difficulties as noted in the lower portion of the kidney and not causing a problem and in addition a lot of the stone material is still adherent to the underlying kidney tissue, so I do not know that a perk would even clear him. Once I had exhausted all efforts, retrograde was performed. This revealed no further filling defects. The scope was backed out along with the sheath. In the lower portion of the ureter, there was some thinned area of the ureteral wall from the sheath passage. Retrograde performed revealed no extravasation from this area, but I will probably leave the stent in for 2 weeks. The 6-Haitian x 26-cm double-J stent was threaded over the wire. [place] [address] OPERATIVE REPORT Name: BARBARA LANDAVERDE Room: [address] IN .R.#: [id number] Admission: 06/28/19 Attend Phys: Daniel Uriostegui Discharge: Date of : 52 Report #: [id number] in the renal pelvis under fluoroscopy and good curl was seen within the bladder under direct vision. Bladder was then drained and the scope was removed. 5 mL of lidocaine jelly were used per urethra for local anesthesia. He was awoken, extubated, and taken to recovery in satisfactory condition. We will dismiss him home and follow up in 2 weeks for stent removal. <ELECTRONICALLY SIGNED> By: Nae Fuentes MD 06/30/19 1325 1514 1915Nae Fuentes MD /josé miguel
[2019-06-30] MEDS ORDERED: VITAMIN D32000 UNI2 PO (13:57)
[2019-07-01] VITALS: BP 111/63
[2019-07-01 04:00] VITALS: BP 144/75
[2019-07-01 07:00] VITALS: BP 156/73
[2019-07-01 08:22] LABS: CALCIUM 7.9 mg/dL (8.5-10.1); CREATININE 2.1 mg/dL (0.6-1.3); POTASSIUM 3.3 mmol/L (3.5-5.1)
[2019-07-01 11:48] VITALS: BP 101/52
[2019-07-01 12:45] LABS: ABSOLUTE EOSINOPHILS 0.2 thou/uL (0.0-0.7); ABSOLUTE LYMPHOCYTES 0.8 thou/uL (0.8-5.3); ABSOLUTE MONOCYTES 0.3 thou/uL (0.0-1.2); ABSOLUTE NEUTROPHILS 9.6 thou/uL (1.6-8.1); BASOPHILS 0.4 %; EOSINOPHILS 1.4 %; HEMATOCRIT 31.6 % (42.0-52.0); HEMOGLOBIN 10.6 gm/dL (14.0-18.0); LYMPHOCYTES 7.1 %; MCH 29.2 pg (26.0-34.0); MCHC 33.5 g/dL (28.0-37.0); MCV 87.1 fL (80.0-100.0); MONOCYTES 2.8 %; MPV 8.4 fl. (7.2-11.1); NUCLEATED RBCS 0 /100WBC; PLATELET COUNT* 191 thou/uL (150-400); POLYS 88.3 %; RBC 3.63 mil/uL (4.50-6.00); RDW-CV 17.3 % (10.5-14.5); WBC 10.9 thou/uL (4.0-11.0)
[2019-07-01 13:00] LABS: ALBUMIN 2.8 g/dL (3.4-5.0); CALCIUM 8.2 mg/dL (8.5-10.1); CREATININE 2.3 mg/dL (0.6-1.3); POTASSIUM 4.2 mmol/L (3.5-5.1); TOTAL BILIRUBIN 0.8 mg/dL (<0.1-1.0); TOTAL PROTEIN 7.3 g/dL (6.4-8.2)
[2019-07-01 15:53] VITALS: BP 149/83
[2019-07-01 20:30] VITALS: BP 138/75
[2019-07-02] VITALS (14 sets, daily range): BP systolic 129–161; BP diastolic 67–89
[2019-07-02 04:00] LABS: MPV 8.8 fl. (7.2-11.1); NUCLEATED RBCS 0 /100WBC
[2019-07-02 04:02] LABS: ABSOLUTE EOSINOPHILS 0.2 thou/uL (0.0-0.7); ABSOLUTE LYMPHOCYTES 0.8 thou/uL (0.8-5.3); ABSOLUTE MONOCYTES 0.3 thou/uL (0.0-1.2); ABSOLUTE NEUTROPHILS 6.8 thou/uL (1.6-8.1); BASOPHILS 0.5 %; EOSINOPHILS 2.6 %; HEMATOCRIT 29.2 % (42.0-52.0); HEMOGLOBIN 9.9 gm/dL (14.0-18.0); LYMPHOCYTES 9.4 %; MCH 29.1 pg (26.0-34.0); MCV 85.6 fL (80.0-100.0); MONOCYTES 3.7 %; PLATELET COUNT* 180 thou/uL (150-400); POLYS 83.8 %; RBC 3.41 mil/uL (4.50-6.00); RDW-CV 16.7 % (10.5-14.5); WBC 8.1 thou/uL (4.0-11.0)
[2019-07-02 04:18] LABS: PREALBUMIN 15.2 mg/dL (18.0-35.7)
[2019-07-02 04:28] LABS: ALBUMIN 2.7 g/dL (3.4-5.0); CALCIUM 8.3 mg/dL (8.5-10.1); POTASSIUM 3.6 mmol/L (3.5-5.1); TOTAL BILIRUBIN 0.8 mg/dL (<0.1-1.0)
--- NOTE | 2019-07-02 15:22 | EKG ---
[place] [address] ELECTROCARDIOGRAM REPORT Name: AKHILBARBARAANKITA LAI Room: [address] ADM IN M.R.#: [id number] Admission: 06/28/19 Attend Phys: Joyce Peters Discharge: Date of : 52 Date of Service: 06/30/19 0804 Report #: [id number] THIS REPORT FOR: //name// [place] Test Date: 2019-06-30 Test Time: 08:04:50 Pat Name: BARBARA LANDAVERDE Department: Room: [address] Gender: M Clinical Psychologist Licensed: SAURAV : 1950 Requested By: Emiliano Young Order Number: [id number] Reading MD: Felix Ling Measurements Intervals [place] Rate: 143 P: SC: QRS: 9 QRSD: 120 T: 15 QT: 332 QTc: 512 Interpretive Statements Atrial flutter with 2:1 AV block Nonspecific intraventricular conduction delay Inferior infarct, old Compared to ECG 06/29/2019 00:32:04 2:1 AV block now present Myocardial infarct finding still present Electronically Signed On 07-02-2019 15:21:46 APPLICATION INTEGRATION SPECIALIST by Felix Ling [email or web address] <ELECTRONICALLY SIGNED> By: Felix Ling MD, FAC 07/02/19 1521 0804 0804 Felix Ling MD, FAC /EPI
--- NOTE | 2019-07-02 15:29 | EKG ---
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
--- NOTE | 2019-07-02 16:02 | TEE ---
[place] [address] TRANSESOPHAGEAL ECHOCARDIOGRAM Name: BARBARA LANDAVERDE Room: [address] IN .R.#: [id number] Admission: 06/28/19 Attend Phys: Joyce Peters Discharge: Date of : 52 Date of Service: 07/02/19 1601 Report #: [id number] THIS REPORT FOR: cc: Felix Diaz MD, David L. MD Blick, David R. MD [facility] ~ APPROVED REPORT Study performed: 07/02/2019 11:36:01 EXAM: Transesophageal Echocardiogram and cardioversion Patient Location: Out-Patient BSA: 2.55 HR: 100 bpm Other Information Study Quality: Good Indications Atrial Fibrillation Echo Enhancing Agent Indication: Rule Out Septal Defect Agent(s) / Amount(s) Used: Agitated Saline 10 cc Procedure After obtaining informed consent, patient underwent transesophageal echo in the [employer]. Type of Sedation : Conscious Sedation Sedation start time: 1142 Case end Time: 121 Sedation was achieved intravenously with: Versed (6) Fentanyl (75) Transesophageal probe was inserted and advanced into esophagus without difficulty by Felix Ling MD, [facility]. Echo enhancement indication: R/O Septal defect. Echo enhancement agent administered: Agitated Saline The MARTHA was performed without complications. Synchronized Cardioversion attempted: Successful Synchronized Cardioversion acheived with 200 Joules after one attempt(s). Rhythm following Synchronized Cardioversion: Normal Sinus Rhythm Throughout the procedure, the blood pressure, pulse oximetry, cardiac rhythm, [place] [address] TRANSESOPHAGEAL ECHOCARDIOGRAM Name: DAHLIAQASIMBARBARAANKITA LAI Room: [address] IN [facility]#: [id number] Admission: 06/28/19 Attend Phys: Joyce Peters Discharge: Date of : 52 Date of Service: 07/02/19 1601 Report #: [id number] The patient tolerated the procedure without adverse effects. Recovery from conscious sedation was uneventful and vital signs were stable. Left Ventricle The left ventricle is normal size. There is normal LV segmental wall motion. There is normal left ventricular wall thickness. The left ventricular systolic function is normal. The left ventricular ejection fraction is within the normal range. LVEF is 55-60%. Right Ventricle The right ventricle is normal size. Atria Left atrium is mildly dilated. No thrombus is visualized in the left atrium or appendage. The interatrial septum is intact with no evidence for an atrial septal defect. Right atrium size is normal. Aortic Valve Aortic valve leaflets are mildly thickened. Mitral Valve The mitral valve is normal in structure. Mild mitral regurgitation. Tricuspid Valve The tricuspid valve is normal in structure. Mild tricuspid regurgitation. Pulmonic Valve The pulmonary valve is normal in structure. Great Vessels The aortic root is normal in size. Pericardium There is no pericardial effusion. <Conclusion> LVEF is 55-60%. Left atrium is mildly dilated. No thrombus is visualized in the left atrium or appendage. The interatrial septum is intact with no evidence for [place] [address] TRANSESOPHAGEAL ECHOCARDIOGRAM Name: EDNA LANDAVERDEMargy MIRELESMING Room: [address] IN [facility].#: [id number] Admission: 06/28/19 Attend Phys: Joyce Peters Discharge: Date of : 52 Date of Service: 07/02/191600 Report #: [id number] Mild mitral regurgitation. successful cardioversion of atrial flutter to nsr <ELECTRONICALLY SIGNED> By: Felix Ling MD, FACC 07/02/191600 00 00 Felix Ling MD, FACC /INF
[2019-07-03] VITALS: BP 142/72
[2019-07-03 04:00] VITALS: BP 150/74
[2019-07-03 08:00] VITALS: BP 150/73
[2019-07-03 16:28] VITALS: BP 155/71
--- NOTE | 2019-07-03 16:47 | EKG ---
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1950 Requested By: Felix Ling Order Number: [id number] Reading MD: Felix Ling Measurements Intervals [place] Rate: 75 P: 33 [place]: 221 QRS: 3 QRSD: 135 T: 36 QT: 449 QTc: 502 Interpretive Statements Sinus rhythm Prolonged [place] interval Nonspecific intraventricular conduction delay Inferior infarct, old Baseline wander in lead(s) V4 Compared to ECG 07/02/2019 09:24:43 First degree AV block now present Myocardial infarct finding still present Electronically Signed On 07-03-2019 16:45:57 COOK HELPER PASTRY by Felix Ling [email or web address] <ELECTRONICALLY SIGNED> By: Felix Ling MD, FACC 07/03/19 1645 0856 Felix Ling MD, [facility] /EPI
[2019-07-04 00:26] VITALS: BP 159/73
[2019-07-04 04:35] VITALS: BP 187/86
[2019-07-04 07:51] VITALS: BP 184/84
[2019-07-04 11:55] VITALS: BP 163/83
[2019-07-04] MEDS ORDERED: AMIODARONE HCL400 MG PO (15:40)
[2019-07-04] MEDS ORDERED: DOXYCYCLINE 10100 M2 PO (15:42)
[2019-07-04 17:58] VITALS: BP 155/78
[2019-07-05] VITALS: BP 172/80
[2019-07-05 04:00] VITALS: BP 184/86
[2019-07-05] MEDS ORDERED: VITAMIN B-121000 MC2 PO (07:44)
[2019-07-05] MEDS ORDERED: APAP650 PO (07:50)
[2019-07-05 08:00] VITALS: BP 180/87
[2019-07-05 08:16] VITALS: BP 180/87
--- NOTE | 2019-07-05 09:23 | CON ---
[address] [address] CONSULTATION Name: BARBARA LANDAVERDE Room: [address] IN M.R.#: [id number] Admission: 06/28/19 Attend Phys: Daniel Uriostegui Discharge: Date of : 52 Report #: [id number] THIS REPORT FOR: //name// cc: Felix Diaz MD, David L. MD ~ THIS REPORT FOR: //name// CC: Felix Peters DATE OF SERVICE: 06/29/2019 REQUESTING PHYSICIAN: Keon Garcia MD REASON FOR CONSULTATION: Acute kidney injury. HISTORY OF PRESENT ILLNESS: The patient is a 69-year-old gentleman known to us who we have seen him during previous admissions. He has a medical history significant for chronic kidney disease stage 4. He has history of bilateral renal stones, placed recently, last time was seen by us in May for acute kidney injury. He also has history of diabetes mellitus type 2, history of peripheral artery disease, history of coronary artery disease, history of atrial fibrillation. The patient presented for exchange of the stent. Dr. uFentes performed a cystoscopy with bilateral stent removal, bilateral URS laser lithotripsy, basket bilateral RPG, bilateral ureteral stent placement. After procedure, the patient became hypotensive, septic and went into atrial fibrillation with rapid ventricular response, heart rate was 148. His blood pressure was in 70s, then he came to the Intensive Care Unit. His creatinine, which was initially 2.7, went up to 3.4 today, but he is not acidotic and he is not hyperkalemic and is making urine now. His white count initially was low at 1200 with points towards sepsis. It is 7.7 now with 94% neutrophils and 2% bands. PAST MEDICAL HISTORY: As I mentioned earlier. SOCIAL HISTORY: No current tobacco or alcohol abuse. FAMILY HISTORY: Noncontributory. REVIEW OF SYSTEMS: Positive for weakness, heart palpitations. He denies chest pain, denies shortness of breath. All other systems reviewed and negative. PHYSICAL EXAMINATION: GENERAL: Awake, alert, oriented. VITAL SIGNS: Blood pressure now 107/68; heart rate is better, it is down to [address] [place] [address] CONSULTATION Name: BARBARA LANDAVERDE Room: [address] IN [facility]#: [id number] Admission: 06/28/19 Attend Phys: Daniel Uroistegui Discharge: Date of : 52 Report #: [id number] now; respiratory rate is 18. He is afebrile. HEENT: Pupils are round. NECK: Fatty. LUNGS: Decreased air movements, but no crackles. CARDIOVASCULAR: Irregular rate. ABDOMEN: Soft. EXTREMITIES: Lower extremities, no edema. He has left below-knee amputation. ASSESSMENT: 1. Acute kidney injury due to under perfusion of the kidney due to sepsis. 2. Sepsis. Cultures are pending. Most likely post-procedure. 3. Atrial fibrillation with rapid ventricular rate. 4. Chronic kidney disease stage 4. 5. Diabetes mellitus type 2. 6. Coronary artery disease. PLAN: Continue with fluids for now, continue with antibiotics. Cardiology is on the case. Thank you very much for asking my opinion. <ELECTRONICALLY SIGNED> By: Ronnie Nelson MD 07/05/19 0923 0947 [id number] Nelson MD /nt
[2019-07-05 12:07] LABS: HEMATOCRIT 31.7 % (42.0-52.0); HEMOGLOBIN 10.7 gm/dL (14.0-18.0); MCH 28.7 pg (26.0-34.0); MCHC 33.8 g/dL (28.0-37.0); MPV 8.2 fl. (7.2-11.1); NUCLEATED RBCS 0 /100WBC; PLATELET COUNT* 255 thou/uL (150-400); RBC 3.72 mil/uL (4.50-6.00); RDW-CV 16.4 % (10.5-14.5); WBC 6.1 thou/uL (4.0-11.0)
[2019-07-05 12:20] LABS: ALBUMIN 2.8 g/dL (3.4-5.0); CALCIUM 9.4 mg/dL (8.5-10.1); CREATININE 1.6 mg/dL (0.6-1.3); POTASSIUM 3.8 mmol/L (3.5-5.1); TOTAL BILIRUBIN 0.5 mg/dL (<0.1-1.0); TOTAL PROTEIN 7.3 g/dL (6.4-8.2)
[2019-07-05 12:28] LABS: % SATURATION 13 % (20-39); IRON 45 ug/dL (50-175)
[2019-07-05 12:39] LABS: ABSOLUTE BASOPHILS 0.1 thou/uL (0.0-0.2); ABSOLUTE EOSINOPHILS 0.3 thou/uL (0.0-0.7); ABSOLUTE LYMPHOCYTES 0.4 thou/uL (0.8-5.3); ABSOLUTE MONOCYTES 0.1 thou/uL (0.0-1.2); ABSOLUTE NEUTROPHILS 5.2 thou/uL (1.6-8.1); METAMYELOCYTES 3 %; PLATELET ESTIMATE ADEQUATE
--- NOTE | 2019-07-06 13:39 | CON ---
[address] [address] CONSULTATION Name: BARBARA LANDAVERDE MING Room: [address]R.#: [id number] Admission: 06/28/19 Attend Phys: Daniel Uriostegui Discharge: 07/05/19 Date of : 52 Report #: [id number] THIS REPORT FOR: //name// cc: Felix Diaz MD, David L. MD ~ THIS REPORT FOR: //name// CC: Felix Peters DATE OF SERVICE: 06/29/2019 HISTORY OF PRESENT ILLNESS: The patient is a 69-year-old male who was admitted yesterday for elective removal of a ureteral stent. Post-procedurally, he developed alteration in consciousness with suggestion of localizing neurologic findings. He also developed hypotension and demonstrated atrial fibrillation/flutter with a tachycardic response. He was transferred to the ICU and received supportive therapy including hydration and IV Cardizem for rate modulation and antibiotic therapy. He returned to a normal state of consciousness and is alert and appropriate present. He denies focal neurologic symptoms. He denies lightheadedness or dizziness. His only complaint is that of thirst. MEDICATIONS: Prior medicines have included metformin, fenofibrate, ramipril, metoprolol, Actos, insulin, and diltiazem. PAST MEDICAL HISTORY: Remarkable for renal dysfunction, depression, atrial fibrillation, prior luc-RF-oxtxtzr elevation myocardial infarction, and left BK amputation. PHYSICAL EXAMINATION: GENERAL: Demonstrates an undistressed elderly male. VITAL SIGNS: Blood pressure is 105/70, pulse rate is 92 and irregularly irregular, and respirations are 18 per minute. NECK: Jugular venous pressure is normal. CHEST: Clear anteriorly. CARDIAC: Reveals an irregularly irregular rhythm with a moderate ventricular response. ABDOMEN: Mildly obese. EXTREMITIES: Reveal a left BK amputation. LABORATORY DATA: Laboratory data from 06/07/2019 today reveals a white blood cell count of 7700 with hemoglobin of 11.1 and platelets of 141,000. Sodium 140, potassium 4.5, and BUN 34 with creatinine of 3.4. Lactic acid 2[place]8. [place] [address] CONSULTATION Name: BARBARA LANDAVERDE Room: [address]#: [id number] Admission: 06/28/19 Attend Phys: Daniel Uriostegui Discharge: 07/05/19 Date of : 52 Report #: [id number] Rhythm strips demonstrate atrial fibrillation with a moderate ventricular response. IMPRESSION: 1. Transitory alteration of consciousness after removal of a ureteral stent. 2. Question of sepsis or focal neurologic event. 3. Atrial fibrillation with a moderate response; he responded to IV Cardizem and developed hypotension and the Cardizem was discontinued in that context. 4. Diabetes. 5. Coronary artery disease. 6. Status post remote left below-knee amputation. RECOMMENDATIONS: 1. Continue IV heparin. 2. Agree with MRI scan which is to be undertaken. 3. Echocardiogram today regarding LV function and potential systemic embolic source. We will follow with you and I suspect he may require additional agents for rate modulation as the diltiazem wears off. These were reconstituted to a lower dose of diltiazem or beta blockade. We will follow with you. Thank you for allowing us to see the patient in cardiovascular assessment. Signing critical care time is 35 minutes from 09:35 to 10:10 on 06/29/2019. <ELECTRONICALLY SIGNED> By: Emiliano Young MD, FACC 07/06/19 1339 1013 [id number] Young MD, FACC /nt
== END 2019-07-05 13:59 | disposition home health service (06) | DRG 853 ==
LOC: M.SUR 11:15 → M.TBA 17:12 → M.2W 17:12 → M.ICU 17:12 → M.2W 18:11 → M.ICU 06-29 00:48 → M.2W 06-29 20:10
PROVIDERS: Internal Medicine; Internal Medicine Nephrology; Urology; ADMIT Internal Medicine
PROC: 0T788DZ Dilation of Bilateral Ureters with Intraluminal Device, Via Natural or Artificial Opening Endoscopic (ICD-10-PCS; principal; 2019-06-28)
PROC: 0TC18ZZ Extirpation of Matter from Left Kidney, Via Natural or Artificial Opening Endoscopic (ICD-10-PCS; principal; 2019-06-28)
PROC: 0TC08ZZ Extirpation of Matter from Right Kidney, Via Natural or Artificial Opening Endoscopic (ICD-10-PCS; principal; 2019-06-28)
PROC: 0TP98DZ Removal of Intraluminal Device from Ureter, Via Natural or Artificial Opening Endoscopic (ICD-10-PCS; principal; 2019-06-28)
PROC: BT141ZZ Fluoroscopy of Kidneys, Ureters and Bladder using Low Osmolar Contrast (ICD-10-PCS; principal; 2019-06-28)
DX: A41.9 Sepsis, unspecified organism (principal); N17.0 Acute kidney failure with tubular necrosis; I50.31 Acute diastolic (congestive) heart failure; G93.41 Metabolic encephalopathy; J69.0 Pneumonitis due to inhalation of food and vomit; N18.4 Chronic kidney disease, stage 4 (severe); I13.0 Hypertensive heart and chronic kidney disease with heart failure and stage 1 through stage 4 chronic kidney disease, or unspecified chronic kidney disease; I48.92 Unspecified atrial flutter; N39.0 Urinary tract infection, site not specified; N20.0 Calculus of kidney; E11.22 Type 2 diabetes mellitus with diabetic chronic kidney disease; E11.51 Type 2 diabetes mellitus with diabetic peripheral angiopathy without gangrene; I25.10 Atherosclerotic heart disease of native coronary artery without angina pectoris; I48.91 Unspecified atrial fibrillation; N13.9 Obstructive and reflux uropathy, unspecified; T46.4X5A Adverse effect of angiotensin-converting-enzyme inhibitors, initial encounter; G31.89 Other specified degenerative diseases of nervous system; D64.9 Anemia, unspecified; I95.9 Hypotension, unspecified; M19.90 Unspecified osteoarthritis, unspecified site; F41.9 Anxiety disorder, unspecified; J44.9 Chronic obstructive pulmonary disease, unspecified; E11.42 Type 2 diabetes mellitus with diabetic polyneuropathy; E78.5 Hyperlipidemia, unspecified; G47.33 Obstructive sleep apnea (adult) (pediatric); F32.9 Major depressive disorder, single episode, unspecified; I25.2 Old myocardial infarction; Z89.522 Acquired absence of left knee; Z86.73 Personal history of transient ischemic attack (TIA), and cerebral infarction without residual deficits; Z79.01 Long term (current) use of anticoagulants; Z87.891 Personal history of nicotine dependence; Z88.0 Allergy status to penicillin; Z88.8 Allergy status to other drugs, medicaments and biological substances; Z91.048 Other nonmedicinal substance allergy status; Z79.4 Long term (current) use of insulin; Z95.5 Presence of coronary angioplasty implant and graft; Z82.49 Family history of ischemic heart disease and other diseases of the circulatory system; Z83.3 Family history of diabetes mellitus; Z72.89 Other problems related to lifestyle; Z98.42 Cataract extraction status, left eye; Z87.440 Personal history of urinary (tract) infections; Z79.899 Other long term (current) drug therapy; Z79.84 Long term (current) use of oral hypoglycemic drugs; Z98.41 Cataract extraction status, right eye; Y92.89 Other specified places as the place of occurrence of the external cause

== ENCOUNTER 2019-07-09 16:57 | Inpatient (IN) | payer OTHER ==
[~2019-07-09] VITALS: Ht 198.1 cm; Wt 111.6 kg
[~2019-07-09 16:57] MED LIST changes: +AMIODARONE HCL400 MG PO; +APAP650 PO; +B-6200 MG PO; +DOXYCYCLINE 10100 M2 PO; +GLUCOSAMINE &1 EAC1 PO; +METFORMIN HCL500 M3 PO; +VITAMIN B-121000 MC2 PO; +VITAMIN D32000 UNI2 PO; +VITAMIN E1000 UNIT PO; +XARELTO15 MG PO
[2019-07-09 17:05] VITALS: BP 105/63
[2019-07-09 19:10] LABS: URINE BILIRUBIN NEGATIVE (Negative); URINE BLOOD 3+ (Negative); URINE GLUCOSE-RANDOM NEGATIVE (Negative); URINE KETONES NEGATIVE (Negative); URINE LEUKOCYTES-REFLEX 1+ (Negative); URINE NITRITE-REFLEX NEGATIVE (Negative); URINE PROTEIN 3+ (Negative); URINE SPECIFIC GRAVITY 1.025 (1.005-1.030); URINE UROBILINOGEN 0.2 E.U./dl (0.2-1.0)
[2019-07-09 19:12] LABS: URINE CLARITY CLOUDY; URINE COLOR DARK YELLOW
[2019-07-09 19:20] LABS: ABSOLUTE BASOPHILS 0.1 thou/uL (0.0-0.2); ABSOLUTE EOSINOPHILS 0.1 thou/uL (0.0-0.7); ABSOLUTE LYMPHOCYTES 1.4 thou/uL (0.8-5.3); ABSOLUTE MONOCYTES 0.5 thou/uL (0.0-1.2); ABSOLUTE NEUTROPHILS 7.1 thou/uL (1.6-8.1); BASOPHILS 0.6 %; EOSINOPHILS 1.1 %; HEMATOCRIT 33.7 % (42.0-52.0); HEMOGLOBIN 11.1 gm/dL (14.0-18.0); LYMPHOCYTES 15.3 %; MCH 28.3 pg (26.0-34.0); MCHC 33.1 g/dL (28.0-37.0); MCV 85.7 fL (80.0-100.0); MONOCYTES 5.4 %; MPV 7.7 fl. (7.2-11.1); NUCLEATED RBCS 0 /100WBC; PLATELET COUNT* 395 thou/uL (150-400); POLYS 77.6 %; RBC 3.93 mil/uL (4.50-6.00); RDW-CV 16.7 % (10.5-14.5); WBC 9.2 thou/uL (4.0-11.0)
[2019-07-09 19:27] LABS: BACTERIA-REFLEX >30 Many /HPF (None Seen); CASTS None Seen /LPF (None Seen); CRYSTALS None Seen /LPF (None Seen); SQUAMOUS 0-3 Few /LPF (0-3); URINE RBC >20 Many /HPF (0-2); URINE WBC-REFLEX >25 Many /HPF (0-5)
[2019-07-09 19:36] LABS: CALCIUM 10.4 mg/dL (8.5-10.1); CREATININE 2.2 mg/dL (0.6-1.3)
[2019-07-09 19:40] LABS: ALBUMIN 3.5 g/dL (3.4-5.0); TOTAL BILIRUBIN 0.4 mg/dL (<0.1-1.0); TOTAL PROTEIN 7.7 g/dL (6.4-8.2)
[2019-07-09 22:25] VITALS: BP 155/53
[2019-07-10] VITALS (9 sets, daily range): BP systolic 136–170; BP diastolic 52–77
[2019-07-10 07:57] LABS: HEMATOCRIT 30.5 % (42.0-52.0); HEMOGLOBIN 10.3 gm/dL (14.0-18.0); MCHC 33.8 g/dL (28.0-37.0); MCV 85.6 fL (80.0-100.0); MPV 7.5 fl. (7.2-11.1); NUCLEATED RBCS 0 /100WBC; PLATELET COUNT* 349 thou/uL (150-400); RBC 3.56 mil/uL (4.50-6.00); RDW-CV 16.9 % (10.5-14.5); WBC 6.6 thou/uL (4.0-11.0)
[2019-07-10 08:04] LABS: ALBUMIN 3.1 g/dL (3.4-5.0); CALCIUM 9.4 mg/dL (8.5-10.1); CREATININE 2.1 mg/dL (0.6-1.3); POTASSIUM 3.3 mmol/L (3.5-5.1); TOTAL BILIRUBIN 0.4 mg/dL (<0.1-1.0); TOTAL PROTEIN 6.9 g/dL (6.4-8.2)
[2019-07-10 08:38] LABS: ABSOLUTE BASOPHILS 0.1 thou/uL (0.0-0.2); ABSOLUTE EOSINOPHILS 0.3 thou/uL (0.0-0.7); ABSOLUTE LYMPHOCYTES 0.8 thou/uL (0.8-5.3); ABSOLUTE MONOCYTES 0.3 thou/uL (0.0-1.2); ABSOLUTE NEUTROPHILS 5.1 thou/uL (1.6-8.1)
--- NOTE | 2019-07-10 11:08 | EKG ---
[place] [address] ELECTROCARDIOGRAM REPORT Name: AKHILBARBARAANKITA LAI Room: [facility]- ADM IN ..#: [id number] Admission: 07/09/19 Attend Phys: Ross Day, Discharge: Date of : 52 Date of Service: 07/09/19 1825 Report #: [id number] THIS REPORT FOR: //name// 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1950 Requested By: Georgia Yoo Order Number: [id number] MD: Felix Ling Measurements Intervals [place] Rate: 82 P: 37 [place]: 206 QRS: -7 QRSD: 131 T: 37 QT: 441 QTc: 515 Interpretive Statements Sinus rhythm Nonspecific intraventricular conduction delay Inferior infarct, old Baseline wander in lead(s) V1 Compared to ECG 07/03/2019 08:56:25 First degree AV block no longer present Myocardial infarct finding still present Electronically Signed On 07-10-2019 11:06:58 BARREL DRUM CUTTER by Felix Ling [email or web address] <ELECTRONICALLY SIGNED> By: Felix Ling MD, FACC 07/10/19 1106 1825 1825 Felix Ling MD, [facility] /EPI
[2019-07-11 03:56] VITALS: BP 165/68
[2019-07-11 04:17] LABS: ABSOLUTE BASOPHILS 0.1 thou/uL (0.0-0.2); ABSOLUTE EOSINOPHILS 0.2 thou/uL (0.0-0.7); ABSOLUTE MONOCYTES 0.4 thou/uL (0.0-1.2); ABSOLUTE NEUTROPHILS 5.2 thou/uL (1.6-8.1); BASOPHILS 0.7 %; EOSINOPHILS 2.3 %; HEMATOCRIT 30.2 % (42.0-52.0); HEMOGLOBIN 10.2 gm/dL (14.0-18.0); LYMPHOCYTES 15.1 %; MCH 28.9 pg (26.0-34.0); MCHC 33.7 g/dL (28.0-37.0); MCV 85.8 fL (80.0-100.0); MONOCYTES 6.2 %; MPV 7.2 fl. (7.2-11.1); NUCLEATED RBCS 0 /100WBC; PLATELET COUNT* 349 thou/uL (150-400); POLYS 75.7 %; RBC 3.52 mil/uL (4.50-6.00); RDW-CV 16.5 % (10.5-14.5); WBC 6.8 thou/uL (4.0-11.0)
[2019-07-11 04:44] LABS: CALCIUM 9.2 mg/dL (8.5-10.1); CREATININE 1.8 mg/dL (0.6-1.3); POTASSIUM 3.4 mmol/L (3.5-5.1)
[2019-07-11 07:30] VITALS: BP 130/93
[2019-07-11 12:00] VITALS: BP 146/44
[2019-07-11 13:37] VITALS: BP 146/44
[2019-07-11] MEDS ORDERED: BACTRIM DS TAB1 EAC1 PO (13:48)
[2019-07-11 14:33] VITALS: BP 146/44
== END 2019-07-11 14:34 | disposition home health service (06) | DRG 291 ==
LOC: M.ERS 16:57 → M.TBA-ER 21:40 → M.2W 07-10 14:47
PROVIDERS: Internal Medicine; Physician Assistant; ADMIT Internal Medicine
DX: I13.0 Hypertensive heart and chronic kidney disease with heart failure and stage 1 through stage 4 chronic kidney disease, or unspecified chronic kidney disease (principal); N17.0 Acute kidney failure with tubular necrosis; N17.1 Acute kidney failure with acute cortical necrosis; N39.0 Urinary tract infection, site not specified; I50.32 Chronic diastolic (congestive) heart failure; N18.9 Chronic kidney disease, unspecified; E11.22 Type 2 diabetes mellitus with diabetic chronic kidney disease; F32.9 Major depressive disorder, single episode, unspecified; M19.90 Unspecified osteoarthritis, unspecified site; E11.40 Type 2 diabetes mellitus with diabetic neuropathy, unspecified; L40.9 Psoriasis, unspecified; N13.9 Obstructive and reflux uropathy, unspecified; I25.10 Atherosclerotic heart disease of native coronary artery without angina pectoris; E11.51 Type 2 diabetes mellitus with diabetic peripheral angiopathy without gangrene; I95.1 Orthostatic hypotension; I48.91 Unspecified atrial fibrillation; E78.5 Hyperlipidemia, unspecified; Z98.42 Cataract extraction status, left eye; Z98.41 Cataract extraction status, right eye; Z89.522 Acquired absence of left knee; Z88.0 Allergy status to penicillin; Z86.73 Personal history of transient ischemic attack (TIA), and cerebral infarction without residual deficits; Z88.8 Allergy status to other drugs, medicaments and biological substances; Z91.048 Other nonmedicinal substance allergy status; Z72.89 Other problems related to lifestyle; Z79.899 Other long term (current) drug therapy; I25.2 Old myocardial infarction; Z95.5 Presence of coronary angioplasty implant and graft; Z79.4 Long term (current) use of insulin; Z79.01 Long term (current) use of anticoagulants; Z79.84 Long term (current) use of oral hypoglycemic drugs; Z82.49 Family history of ischemic heart disease and other diseases of the circulatory system; Z83.3 Family history of diabetes mellitus; Z87.891 Personal history of nicotine dependence

== ENCOUNTER → 2020-10-30 | Outpatient (CLI) | payer OTHER ==
[~2020-10-30] MED LIST changes: +BACTRIM DS TAB1 EAC1 PO
== END ==
LOC: M.CT 15:00
PROVIDERS: ATTEND Internal Medicine
DX: Z12.2 Encounter for screening for malignant neoplasm of respiratory organs (principal); Z87.891 Personal history of nicotine dependence

== ENCOUNTER → 2020-11-14 | Outpatient (CLI) | payer OTHER | LOC: M.ULTRA 10:30 | PROVIDERS: ATTEND Internal Medicine | DX: K76.89 Other specified diseases of liver (principal); R93.89 Abnormal findings on diagnostic imaging of other specified body structures; N28.1 Cyst of kidney, acquired ==

== ENCOUNTER 2021-02-23 13:30 | Inpatient (IN) | payer OTHER ==
[~2021-02-23] VITALS: Ht 198.1 cm; Wt 129.3 kg
[2021-02-23 13:41] VITALS: BP 155/81
[2021-02-23 14:14] LABS: HEMATOCRIT 33.7 % (42.0-52.0); HEMOGLOBIN 11.4 gm/dL (14.0-18.0); MCH 29.9 pg (26.0-34.0); MCHC 33.9 g/dL (28.0-37.0); MCV 88.3 fL (80.0-100.0); MPV 7.7 fl. (7.2-11.1); NUCLEATED RBCS 0 /100WBC; PLATELET COUNT* 449 thou/uL (150-400); RBC 3.81 mil/uL (4.50-6.00); RDW-CV 14.9 % (10.5-14.5); WBC 23.7 thou/uL (4.0-11.0)
[2021-02-23 14:26] LABS: CALCIUM 9.3 mg/dL (8.5-10.1); CREATININE 2.9 mg/dL (0.6-1.3); POTASSIUM 4.4 mmol/L (3.5-5.1)
[2021-02-23 14:30] LABS: ALBUMIN 2.2 g/dL (3.4-5.0); TOTAL BILIRUBIN 0.5 mg/dL (<0.1-1.0); TOTAL PROTEIN 7.7 g/dL (6.4-8.2)
[2021-02-23 14:42] LABS: URINE BILIRUBIN NEGATIVE (Negative); URINE BLOOD 2+ (Negative); URINE CLARITY CLEAR; URINE COLOR YELLOW; URINE GLUCOSE-RANDOM 1+ (Negative); URINE KETONES NEGATIVE (Negative); URINE LEUKOCYTES-REFLEX 1+ (Negative); URINE NITRITE-REFLEX NEGATIVE (Negative); URINE PROTEIN 2+ (Negative); URINE SPECIFIC GRAVITY 1.025 (1.005-1.030); URINE UROBILINOGEN 0.2 E.U./dl (0.2-1.0)
[2021-02-23 15:07] LABS: HYALINE CASTS 0-3 Few /LPF (None Seen); SQUAMOUS 0-3 Few /LPF (0-3); URINE WBC-REFLEX >25 Many /HPF (0-5); WBC CLUMPS Few (None Seen)
[2021-02-23 15:08] LABS: BACTERIA-REFLEX 1-9 Few /HPF (None Seen); CRYSTALS None Seen /LPF (None Seen); MUCUS None Seen strn/LPF (None Seen); URINE RBC 0-2 Rare /HPF (0-2); YEAST-REFLEX Present (None Seen)
[2021-02-23 15:12] LABS: ABSOLUTE LYMPHOCYTES 0.9 thou/uL (0.8-5.3); ABSOLUTE MONOCYTES 0.7 thou/uL (0.0-1.2)
[2021-02-23 15:14] LABS: CLUMPED PLTS RARE; LARGE PLATELETS OCCASIONAL; PLATELET ESTIMATE ADEQUATE
[2021-02-23 15:15] LABS: POLYCHROMASIA Occasional
--- NOTE | 2021-02-23 16:20 | EKG ---
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 : 1950 Requested By: Salty Gill Order Number: [id number] MD: Felix Ling Measurements Intervals [place] Rate: 97 P: 48 AL: 191 QRS: 7 QRSD: 133 T: 39 QT: 372 QTc: 473 Interpretive Statements Sinus rhythm IVCD, consider atypical RBBB Inferior infarct, old Anterior infarct, old Compared to ECG 07/09/2019 18:25:37 anterior q waves no longer noted Electronically Signed On 02-23-2021 16:20:14 CDT by Felix Ling [email or web address] <ELECTRONICALLY SIGNED> By: Felix Ling MD, FACC 02/23/21 1620 1441 1441 Felix Ling MD, FACC /EPI
[2021-02-23 16:48] VITALS: BP 151/70
[2021-02-23 17:30] VITALS: BP 135/57
[2021-02-23 20:00] VITALS: BP 145/58
[2021-02-23 23:48] VITALS: BP 124/55
[2021-02-24 04:53] VITALS: BP 156/67
[2021-02-24 05:21] LABS: HEMATOCRIT 30.7 % (42.0-52.0); HEMOGLOBIN 9.9 gm/dL (14.0-18.0); MCH 28.3 pg (26.0-34.0); MCHC 32.1 g/dL (28.0-37.0); MCV 88.2 fL (80.0-100.0); MPV 7.8 fl. (7.2-11.1); RBC 3.48 mil/uL (4.50-6.00); RDW-CV 15.4 % (10.5-14.5); WBC 19.4 thou/uL (4.0-11.0)
[2021-02-24 05:41] LABS: ALBUMIN 1.9 g/dL (3.4-5.0); CALCIUM 8.8 mg/dL (8.5-10.1); CREATININE 2.7 mg/dL (0.6-1.3); MAGNESIUM 2.4 mg/dL (1.8-2.4); TOTAL BILIRUBIN 0.4 mg/dL (<0.1-1.0); TOTAL PROTEIN 6.9 g/dL (6.4-8.2)
[2021-02-24 08:00] VITALS: BP 152/53
[2021-02-24 12:00] VITALS: BP 149/59
[2021-02-24 16:00] VITALS: BP 150/64
[2021-02-24 20:00] VITALS: BP 169/70
[2021-02-25] VITALS: BP 158/66
[2021-02-25 04:00] VITALS: BP 158/67
[2021-02-25 08:00] VITALS: BP 163/63
[2021-02-25 12:26] VITALS: BP 150/49
[2021-02-25 20:34] VITALS: BP 151/64
[2021-02-26] VITALS: BP 117/77
[2021-02-26 04:55] VITALS: BP 133/73
[2021-02-26 06:37] LABS: ABSOLUTE BASOPHILS 0.1 thou/uL (0.0-0.2); ABSOLUTE EOSINOPHILS 0.2 thou/uL (0.0-0.7); ABSOLUTE LYMPHOCYTES 0.5 thou/uL (0.8-5.3); ABSOLUTE MONOCYTES 0.7 thou/uL (0.0-1.2); ABSOLUTE NEUTROPHILS 15.5 thou/uL (1.6-8.1); BASOPHILS 0.6 %; HEMATOCRIT 30.3 % (42.0-52.0); HEMOGLOBIN 9.9 gm/dL (14.0-18.0); MCH 28.9 pg (26.0-34.0); MCHC 32.7 g/dL (28.0-37.0); MCV 88.4 fL (80.0-100.0); MONOCYTES 4.3 %; MPV 7.7 fl. (7.2-11.1); NUCLEATED RBCS 0 /100WBC; PLATELET COUNT* 403 thou/uL (150-400); POLYS 91.1 %; RBC 3.43 mil/uL (4.50-6.00); RDW-CV 15.2 % (10.5-14.5); WBC 17.1 thou/uL (4.0-11.0)
[2021-02-26 06:51] LABS: ALBUMIN 1.6 g/dL (3.4-5.0); CALCIUM 8.6 mg/dL (8.5-10.1); POTASSIUM 3.9 mmol/L (3.5-5.1); TOTAL BILIRUBIN 0.4 mg/dL (<0.1-1.0); TOTAL PROTEIN 6.5 g/dL (6.4-8.2)
[2021-02-26 08:49] VITALS: BP 169/62
[2021-02-26 11:45] VITALS: BP 140/50
[2021-02-26] MEDS ORDERED: VANCOMYCIN500 MG/101 IV (14:01)
[2021-02-26] MEDS ORDERED: CEFEPIME 11 GM/50 ML IV (14:01)
[2021-02-26 15:41] VITALS: BP 168/67
--- NOTE | 2021-03-03 14:02 | CON ---
[address] [address] CONSULTATION Name: BARBARA LANDAVERDE Room: [address] IN M.R.#: [id number] Admission: 02/23/21 Attend Phys: Daniel Uriostegui Discharge: 02/26/21 Date of : 52 Report #: [id number] THIS REPORT FOR: cc: Dyllan Cantu MD, Meng MD Arakelov, Alexandr V. MD ~ DATE OF CONSULTATION: 02/25/2021 REQUESTING PHYSICIAN: Dr. Peters. REASON FOR CONSULTATION: Acute kidney injury. HISTORY OF PRESENT ILLNESS: The patient is a 70-year-old gentleman very well known to me as he follows with me in my office for chronic kidney disease stage 3 due to diabetic nephropathy. Baseline creatinine is between 1.8 to 2.0. He was admitted on 02/23 with complaints of some erythema and pain on the right foot. It was found that the large toe, right foot was gangrenous. He was started on antibiotics and surgery was consulted as well. His creatinine was 2.9, up from his baseline. PAST MEDICAL HISTORY: 1. Diabetes mellitus type 2, uncontrolled. 2. Hypertension. 3. Peripheral artery disease. 4. Obesity. 5. Chronic kidney disease stage 3. 6. Peripheral artery disease. SOCIAL HISTORY: No current tobacco or alcohol abuse. FAMILY HISTORY: Positive for diabetes, hypertension. REVIEW OF SYSTEMS: Positive for poor control of diabetes, poor control of hypertension, overall weakness. He has some pollakiuria and nocturia, some redness of the right foot. Rest of system is reviewed and negative. PHYSICAL EXAMINATION: GENERAL: Awake, alert, oriented. VITAL SIGNS: Blood pressure 158/67, heart rate 90, afebrile. HEENT: Pupils are round. NECK: Fatty. LUNGS: Clear to auscultation bilaterally. CARDIOVASCULAR: Regular rate. ABDOMEN: Obese, soft. EXTREMITIES: Lower extremities, he has left below-knee [place] [address] CONSULTATION Name: DAHLIAQASIMBARBARAANKITA LAI Room: [address] IN ..#: [id number] Admission: 02/23/21 Attend Phys: Daniel Uriostegui Discharge: 02/26/21 Date of : 52 Report #: [id number] He has got cellulitis of his foot, the skin is red and the foot is swollen. He also has large toe on the right foot is gangrenous looking. NEUROLOGIC: He is intact. PSYCHIATRIC: Appropriate mood and affect. His pupils are round and reactive to light. ASSESSMENT: 1. Acute kidney injury due to septic picture. He has gangrenous toe, right foot, the large toe. 2. Uncontrolled diabetes mellitus type 2. 3. Uncontrolled hypertension. 4. Obesity. 5. Chronic kidney disease stage 3. PLAN: 1. Continue gentle hydration. 2. Continue antibiotics and defer to surgery regarding possible surgical intervention. Thank you very much. <ELECTRONICALLY SIGNED> By: Ronnie Nelson MD 03/03/21 1402 1010 [id number] Nelson MD /nt
== END 2021-02-26 17:00 | disposition short-term general hospital (02) | DRG 871 ==
LOC: M.ERS 13:30 → M.2W 14:43 → M.TBA-ER 14:43 → M.2W 14:43
PROVIDERS: Family Medicine; Internal Medicine; Internal Medicine Nephrology; ADMIT Internal Medicine; ATTEND Internal Medicine
PROC: B548ZZA Ultrasonography of Superior Vena Cava, Guidance (ICD-10-PCS; principal; 2021-02-25)
PROC: B5181ZA Fluoroscopy of Superior Vena Cava using Low Osmolar Contrast, Guidance (ICD-10-PCS; principal; 2021-02-25)
PROC: 02HV33Z Insertion of Infusion Device into Superior Vena Cava, Percutaneous Approach (ICD-10-PCS; principal; 2021-02-25)
DX: A41.89 Other specified sepsis (principal); N17.0 Acute kidney failure with tubular necrosis; E43 Unspecified severe protein-calorie malnutrition; L03.115 Cellulitis of right lower limb; N39.0 Urinary tract infection, site not specified; E11.52 Type 2 diabetes mellitus with diabetic peripheral angiopathy with gangrene; I96 Gangrene, not elsewhere classified; Z20.822 Contact with and (suspected) exposure to COVID-19; F32.9 Major depressive disorder, single episode, unspecified; M19.90 Unspecified osteoarthritis, unspecified site; E11.40 Type 2 diabetes mellitus with diabetic neuropathy, unspecified; E78.5 Hyperlipidemia, unspecified; I48.91 Unspecified atrial fibrillation; I12.9 Hypertensive chronic kidney disease with stage 1 through stage 4 chronic kidney disease, or unspecified chronic kidney disease; E11.22 Type 2 diabetes mellitus with diabetic chronic kidney disease; B96.89 Other specified bacterial agents as the cause of diseases classified elsewhere; N18.30 Chronic kidney disease, stage 3 unspecified; E66.9 Obesity, unspecified; E11.65 Type 2 diabetes mellitus with hyperglycemia; Z87.891 Personal history of nicotine dependence; I25.2 Old myocardial infarction; Z95.5 Presence of coronary angioplasty implant and graft; Z86.73 Personal history of transient ischemic attack (TIA), and cerebral infarction without residual deficits; Z98.42 Cataract extraction status, left eye; Z98.41 Cataract extraction status, right eye; Z89.512 Acquired absence of left leg below knee; Z88.0 Allergy status to penicillin; Z68.32 Body mass index [BMI] 32.0-32.9, adult; Z83.3 Family history of diabetes mellitus; Z82.49 Family history of ischemic heart disease and other diseases of the circulatory system; Z88.8 Allergy status to other drugs, medicaments and biological substances